=== PATIENT | male | born 1945 | race Caucasian/White ===

== ENCOUNTER 2016-11-13 12:49 | Day surgery (SDC) | payer MEDICARE, BC ==
[2016-11-13 13:31] VITALS: BP 140/75; PULSE 70; RESP 18; TEMP 98.2
--- NOTE | 2016-11-13 15:49 | US ---
ULTRASOUND GUIDED FNA THYROID BIOPSY: CLINICAL HISTORY: 2.3 cm right thyroid nodule FINDINGS: The procedure was explained to the patient. The risks, complications, benefits and alternatives were discussed and any questions were answered. Informed consent was obtained. Patient was placed supin e on the ultrasound table and prepped and draped in the usual sterile fashion. Utilizing a 25 gauge needle, five passes were made into the requested right thyroid nodule. Patient was stable throughout the procedure. Pathology is pending. All elements of maximal barrier technique were utilized. IMPRESSION: 1. Successful ultrasound guided FNA thyroid biopsy.
== END 2016-11-13 14:25 | disposition home or self-care (01) ==
LOC: RADPROMAIN 12:49
PROVIDERS: ATTEND Radiology Radiation Oncology
DX: E07.9 Disorder of thyroid, unspecified (principal)
CPT/HCPCS: 10022; 76942; 88173; 88305

== ENCOUNTER 2016-12-24 09:27 | Emergency (ER) | payer MEDICARE, BC ==
[2016-12-24 09:58] VITALS: RESP 16
[2016-12-24] MEDS ORDERED: MECLIZINE 25 MG TAB PO STA (10:01)
[2016-12-24] MEDS ORDERED: DIAZEPAM 5 MG/ML 2 ML SYRINGE IVP STA (10:05)
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
[2016-12-24] MEDS ORDERED: DIAZEPAM 5 MG TAB PO STA (10:12)
[2016-12-24 10:25] LABS: Basophils % (A) 0 %; CH 30.6; CHCM 33.8; Eosinophils % (A) 0 %; HCT 35.3 % (39.0-53.0); HDW 2.61; Luc # (Auto) 0.06; Luc % (Auto) 1; Lymphocytes # (A) 0.3 k/uL (1.0-4.8); Lymphocytes % (A) 4 %; MCH 30.9 pg (25.0-35.0); MCHC 33.9 g/dL (31.0-37.0); MCV 91.1 fL (80.0-100.0); Mean Platelet Volume 8.1; Monocytes # (A) 0.5 k/uL (0-1.0); Monocytes % (A) 7 %; Neutrophils # (A) 6.6 k/uL (1.3-7.7); Neutrophils % (A) 88 %; RBC 3.88 m/uL (4.30-5.90); RDW 13.8 % (11.5-15.5); WBC 7.5 k/uL (3.8-10.6); WBC (Perox) 8.11
[2016-12-24 10:31] LABS: ALT 24 U/L (21-72); AST 21 U/L (17-59); Alkaline Phosphatase 88 U/L (38-126); Anion Gap 9 mmol/L; Blood Urea Nitrogen 39 mg/dL (9-20); Calcium 8.4 mg/dL (8.4-10.2); Carbon Dioxide 22 mmol/L (22-30); Chloride 106 mmol/L (98-107); Glucose 148 mg/dL (74-99); Magnesium 2.1 mg/dL (1.6-2.3); Non-African American GFR(MDRD) >60 (>60 ml/min/1.73 sqM); Sodium 137 mmol/L (137-145); Total Bilirubin 0.6 mg/dL (0.2-1.3); Total Protein 6.4 g/dL (6.3-8.2)
[2016-12-24 10:47] LABS: Creatine Kinase 51 U/L (55-170)
[2016-12-24 10:57] LABS: INR 1.1 (<1.2); Prothrombin Time 10.7 sec (9.0-12.0)
[2016-12-24 11:00] LABS: Creatine Kinase MB 0.7 ng/mL (0.0-2.4); Troponin I <0.012 ng/mL (0.000-0.034)
--- NOTE | 2016-12-24 11:09 | XR ---
EXAMINATION TYPE: XR chest 2V DATE OF EXAM: 12/24/2016 COMPARISON: NONE HISTORY: Shortness of breath TECHNIQUE: Frontal and lateral views of the chest are obtained. FINDINGS: Scattered senescent parenchymal changes noted. Hyperinflation compatible with COPD. No evidence for infiltrate. No evidence for atelectasis. Heart size is stable. Mediastinal structures are stable and grossly unremarkable. No evidence for hilar prominence. Degenerative changes dorsal spine. IMPRESSION: 1. No evidence for acute pulmonary disease.
[2016-12-24 11:13] LABS: Partial Thromboplastin Time 17.9 sec (22.0-30.0)
--- NOTE | 2016-12-24 11:14 | CT ---
EXAMINATION TYPE: CT brain wo con DATE OF EXAM: 12/24/2016 COMPARISON: NONE INDICATION: Patient complains of dizziness. DLP: 763.5 mGycm, Automated exposure control for dose reduction was used. CONTRAST: None CT of the brain is performed utilizing 3 mm thick sections through the posterior fossa and 3 mm thick sections through the remaining calvarium. Study is performed within 24 hours of arrival to the hosp ital. No abnormal hyperdensity is present to suggest an acute intracranial hemorrhage. No mass lesion is evident. No acute infarcts are evident. There is some mild periventricular white matter hypodensity, likely on the basis of chronic white matter ischemic changes. Ventricles and sulci are slightly prominent for the patient age. Paranasal sinuses and mastoid air cells within the [id number] are clear. IMPRESSIONS: 1. Periventricular chronic appearing white matter ischemic changes and age-related atrophy.
[2016-12-24 12:14] VITALS: BP 157/83; PULSE 59; TEMP 97
== END 2016-12-24 12:13 | disposition home or self-care (01) ==
LOC: EC 09:27
DX: R42 Dizziness and giddiness (principal); R00.1 Bradycardia, unspecified; M19.90 Unspecified osteoarthritis, unspecified site; N42.9 Disorder of prostate, unspecified; Z87.891 Personal history of nicotine dependence; Z79.1 Long term (current) use of non-steroidal anti-inflammatories (NSAID); Z79.899 Other long term (current) drug therapy; Z85.46 Personal history of malignant neoplasm of prostate
CPT/HCPCS: 36415; 70450; 71020; 80053; 82550; 82553; 83735; 84484; 85025; 85610; 85730; 93005; 99284

== ENCOUNTER 2021-10-21 16:08 | Inpatient (IN) | payer MEDICARE, BC ==
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
[2021-10-21] MEDS ORDERED: DILTIAZEM DRIP BOLUS FROM BAG 1 MG SOLN IV ONE (16:56)
[2021-10-21] MEDS ORDERED: DILTIAZEM 125 MG in SODIUM CHLORIDE 0.9% 100 ML IV SCH (17:00)
[2021-10-21 17:43] LABS: INR 1.1 (<1.2); Prothrombin Time 11.7 sec (9.0-12.0)
[2021-10-21] MEDS ORDERED: HEPARIN SODIUM 1,000 UN/ML (10ML VL) IV ONE (17:55)
[2021-10-21] MEDS ORDERED: HEPARIN SODIUM 1,000 UN/ML (10ML VL) IV PRN (17:55)
[2021-10-21] MEDS ORDERED: NALOXONE 0.4 MG/ML 1 ML VIAL IV PRN (17:57)
[2021-10-21] MEDS ORDERED: HEPARIN SOD,PORK IN 0.45% NACL 25,000 UNIT in 0.45% NACL 1 250ML.BAG IV SCH (18:00)
[2021-10-21 18:28] LABS: Partial Thromboplastin Time 24.9 sec (22.0-30.0)
[2021-10-21] MEDS: metroNIDAZOLE 500 MG TAB PO SCH (20:36)
[2021-10-21] MEDS ORDERED: CIPROFLOXACIN HCL 500 MG TAB PO SCH (21:00)
[2021-10-22] MEDS: metroNIDAZOLE 500 MG TAB PO SCH (02:32)
[2021-10-22 06:54] LABS: Basophils % (A) 0 %; Eosinophils # (A) 0.4 k/uL (0-0.7); Eosinophils % (A) 5 %; HCT 46.4 % (39.0-53.0); HGB 14.5 gm/dL (13.0-17.5); Lymphocytes # (A) 1.3 k/uL (1.0-4.8); Lymphocytes % (A) 16 %; MCH 29.1 pg (25.0-35.0); MCHC 31.3 g/dL (31.0-37.0); MCV 92.9 fL (80.0-100.0); Mean Platelet Volume 8.6; Monocytes # (A) 0.5 k/uL (0-1.0); Monocytes % (A) 6 %; Neutrophils # (A) 5.8 k/uL (1.3-7.7); Neutrophils % (A) 72 %; Platelet Count 260 k/uL (150-450); RBC 4.99 m/uL (4.30-5.90); WBC 8.1 k/uL (3.8-10.6)
[2021-10-22 07:04] LABS: INR 1.2 (<1.2); Prothrombin Time 12.3 sec (9.0-12.0)
[2021-10-22] MEDS: SERTRALINE 50 MG TAB PO SCH (08:32)
[2021-10-22] MEDS: TAMSULOSIN 0.4 MG CAP.ER.24H PO SCH (08:32)
[2021-10-22] MEDS: APIXABAN 5 MG TAB PO SCH ×2 (08:45→20:24)
[2021-10-22] MEDS: METOPROLOL TARTRATE 50 MG TAB PO SCH ×2 (08:46→20:24)
[2021-10-22 09:24] LABS: African American GFR (CKD) 66 (>60 ml/min/1.73 sqM); Anion Gap 6 mmol/L; Blood Urea Nitrogen 21 mg/dL (9-20); Calcium 8.2 mg/dL (8.4-10.2); Carbon Dioxide 21 mmol/L (22-30); Chloride 110 mmol/L (98-107); Glucose 98 mg/dL (74-99); Non-African American GFR(CKD) 57 (>60 ml/min/1.73 sqM); Potassium 4.1 mmol/L (3.5-5.1); Sodium 137 mmol/L (137-145)
[2021-10-22 10:25] LABS: T4, Free (Free Thyroxine) 1.45 ng/dL (0.78-2.19)
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
--- NOTE | 2021-10-22 11:27 | P.DS ---
Providers Date of admission: 10/21/21 16:54 Attending physician: Amber Jean Consults: 10/21/21 17:57 Consult Physician Routine Consulting Provider: Dago De La Cruz Consult Reason/Comments: New-onset A. fib with RVR, syncope Do you want consulting provider notified?: Yes, Notify in am Primary care physician: Sarita Hernandez MD Hospital Course: Refer to my history of present illness for further details history of present illness for further details Plan - Discharge Summary Discharge Rx Participant: Yes New Discharge Prescriptions: New Apixaban [Eliquis] 5 mg PO BID #60 tab Apixaban [Eliquis] 5 mg PO BID #60 tab Metoprolol Tartrate [Lopressor] 50 mg PO BID #60 tab Continue Tamsulosin HCl [Flomax] 0.4 mg PO DAILY Sertraline [Zoloft] 50 mg PO DAILY Discontinued Naproxen 500 mg PO BID PRN PRN Reason: Pain metroNIDAZOLE 500 mg PO Q8H Ciprofloxacin HCl 500 mg PO BID Discharge Medication List Tamsulosin HCl [Flomax] 0.4 mg PO DAILY 11/13/16 [History] Sertraline [Zoloft] 50 mg PO DAILY 12/24/16 [History] Apixaban [Eliquis] 5 mg PO BID #60 tab 10/22/21 [Rx] Apixaban [Eliquis] 5 mg PO BID #60 tab 10/22/21 [Rx] Metoprolol Tartrate [Lopressor] 50 mg PO BID #60 tab 10/22/21 [Rx] Follow up Appointment(s)/Referral(s): Sarita Hernandez MD [Primary Care Provider] - 3 Days Discharge Disposition: HOME SELF-CARE
--- NOTE | 2021-10-22 11:34 | CA ---
Transthoracic Echo Report Name: Alexandro More Age: 76 Gender: M : 1945 Exam Date: 10/22/2021 08:12 Exam Location: [facility] Ht (in): 70 Wt (lb): 167 Ordering Physician: Carson Brito Attending/Referring Phys: Repossessor Lois De Los Santos RDCS Procedure CPT: Indications: A. fib with RVR, syncope Cardiac Hx: Technical Quality: Good Contrast 1: Total Dose (mL): Contrast 2: Total Dose (mL): MEASUREMENTS (Male / Female) Normal Values 2D ECHO LV Diastolic Diameter PLAX 5.1 cm 4.2 - 5.9 / 3.9 - 5.3 cm LV Systolic Diameter PLAX 3.5 cm IVS Diastolic Thickness 1.3 cm 0.6 - 1.0 / 0.6 - 0.9 cm LVPW Diastolic Thickness 1.3 cm 0.6 - 1.0 / 0.6 - 0.9 cm LV Relative Wall Thickness 0.5 RV Internal Dim ED PLAX 3.3 cm LA Systolic Diameter LX 3.9 cm 3.0 - 4.0 / 2.7 - 3.8 cm LA Volume 69.8 cm??? 18 - 58 / 22 - 52 cm??? M-MODE Aortic Root Diameter MM 2.8 cm MV E Point Septal Separation 1.4 cm AV Cusp Separation MM 1.7 cm DOPPLER AV Peak Velocity 115.1 cm/s AV Peak Gradient 5.3 mmHg MV Area PHT 4.4 cm??? MV Deceleration Time 185.7 ms TR Peak Velocity 304.9 cm/s TR Peak Gradient 37.2 mmHg Right Ventricular Systolic Press 40.4 mmHg FINDINGS Left Ventricle Left ventricular ejection fraction is estimated at 40-45 %. Left ventricular cavity size normal. Mild concentric left ventricular hypertrophy. Right Ventricle Mild right ventricular dilatation. Mild pulmonary hypertension. Right Atrium Normal right atrial size. Left Atrium Moderately increased left atrial volume. Mildly increased left atrial area. No evidence for an atrial septal defect. Mitral Valve Mitral valve thickened. Mild mitral regurgitation. No evidence for mitral valve prolapse. Aortic Valve Focal thickening of the aortic valve cusps. No aortic valve stenosis or regurgitation. Tricuspid Valve Mild tricuspid regurgitation. Pulmonic Valve Pulmonic valve not well visualized. Pericardium Normal pericardium. No pericardial effusion. Aorta Normal size aortic root and proximal ascending aorta. CONCLUSIONS Left ventricular ejection fraction 40-45% with global hypokinesis Mild LVH RVSP 40 Mild mitral regurgitation Mild tricuspid regurgitation No pericardial effusion Previewed by: Dr. Krishna Still DO (Electronically Signed) Final Date: 22 October 2021 11:33
--- NOTE | 2021-10-22 12:32 | CT ---
EXAMINATION TYPE: CT chest angio for PE CT DLP: 315.4 mGycm, Automated exposure control for dose reduction was used. DATE OF EXAM: 10/22/2021 12:22 PM COMPARISON: Chest radiograph from 10/21/2021. CLINICAL INDICATION:Male, 76 years old with history of r/o PE; Elevated d-dimer. TECHNIQUE/CONTRAST: CTA scan of the thorax is performed with IV Contrast, patient injected with 77ml mL of Isovue 370, pu lmonary embolism protocol. MIP images are created and reviewed. FINDINGS: Pulmonary Artery: There is no evidence for a filling defect within the pulmonary vasculature to sugge st acute pulmonary embolism. The pulmonary artery is of normal size. Lungs/Pleura: No evidence of focal consolidation, pleural effusion or pneumothorax. Mild COPD changes are seen throughout the lungs. Airway: Large airways are patent. Heart: Heart is within normal limits for size. Mild atherosclerosis of the coronary arteries. Vasculature: No evidence of aortic aneurysm. Mediastinum: No gross evidence of adenopathy. Musculoskeletal: No acute osseous abnormalities. Mild degeneration changes of the spine with increase d kyphosis of the thoracic spine. Soft Tissues: Unremarkable. Lower neck: No significant findings. Upper Abdomen: No significant findings. IMPRESSION: 1. No evidence of pulmonary embolism. 2. Mild COPD changes.
[2021-10-22] MEDS: SODIUM CHLORIDE 0.9% 1,000 ML IV SCH (13:19)
[2021-10-22 16:04] LABS: Appearance,Urine Clear (Clear); Bilirubin,Urine Negative (Negative); Blood,Urine Negative (Negative); Color,Urine Yellow; Glucose,Urine (UA) Negative (Negative); Ketones,Urine Negative (Negative); Leukocyte Esterase,Urine Negative (Negative); Nitrite,Urine Negative (Negative); Protein,Urine Trace (Negative); Urobilinogen,Urine <2.0 mg/dL (<2.0)
[2021-10-22 16:28] LABS: Specific Gravity,Urine >1.050 (1.001-1.035)
[2021-10-23] MEDS: SODIUM CHLORIDE 0.9% 1,000 ML IV SCH (01:30)
[2021-10-23] MEDS ORDERED: LOPERAMIDE 2 MG CAP PO PRN (09:00)
[2021-10-23] MEDS ORDERED: FUROSEMIDE 40 MG TAB PO SCH (09:00)
[2021-10-23] MEDS: SERTRALINE 50 MG TAB PO SCH (09:06)
[2021-10-23] MEDS: TAMSULOSIN 0.4 MG CAP.ER.24H PO SCH (09:06)
[2021-10-23] MEDS: METOPROLOL TARTRATE 50 MG TAB PO SCH (09:06)
[2021-10-23] MEDS: APIXABAN 5 MG TAB PO SCH (09:06)
--- NOTE | 2021-10-23 12:36 | P.PN ---
Subjective Patient is resting comfortably in bed. He denies any chest discomfort or undue shortness of breath He complains of hip pain In examination blood pressure is 124/80 mmHg pulse rate is in the 70s afebrile Breath sounds are reduced bilaterally rhythm is irregular No lower extremity edema No orthopnea no respiratory distress Impression Mild cardio myopathy 40-45% global hypokinesis Paroxysmal atrial fibrillation with RVR associated with near syncope First degree AV block Hypothyroidism Plan Continue anticoagulation with ELIQUIS Continue by mouth Lasix 40 mg by mouth daily Continue metoprolol 50 mrem twice daily Internal medicine to address hypothyroidism From a cardiac standpoint he may go home and follow-up with his primary care physician in [place] and a referral to outpatient cardiology for further evaluation Objective - Vital Signs Vital signs: Vital Signs Temp 98.1 F 10/23/21 07:33 Pulse 67 10/23/21 07:33 Resp 18 10/23/21 07:33 BP 135/92 10/23/21 07:33 Pulse Ox 93 L 10/23/21 07:33 FiO2 Intake & Output 10/22/21 10/23/21 10/23/21 18:59 06:59 18:59 Intake Total 358 1140 118 Output Total 300 400 Balance 58 740 118 Weight 75.75 kg Intake: Intake, IV Titration 900 Amount Sodium Chloride 0.9% 1, 900 000 ml @ 75 mls/hr IV . [id number] [facility] Rx#:[id number] Oral 358 240 118 Output: Urine 300 400 Other: # Bowel Movements 1 - Labs CBC & Chem 7: 10/22/21 06:30 10/22/21 06:30 Labs: Abnormal Lab Results - Last 24 Hours (Table) 10/22/21 10/22/21 Range/Units 06:30 15:06 Chloride 110 H (98-107) mmol/L Carbon Dioxide 21 L (22-30) mmol/L BUN 21 H (9-20) mg/dL Calcium 8.2 L (8.4-10.2) mg/dL TSH 18.900 H (0.465-4.680) mIU/L Ur Specific [place] >1.050 H (1.001-1.035) Urine Protein Trace H (Negative)
[2021-10-23 13:24] VITALS: BP 104/47; PULSE 86; RESP 19; TEMP 98
== END 2021-10-23 14:34 | disposition home or self-care (01) | DRG 309 ==
LOC: EC 16:08 → 3SCARD 16:54
PROVIDERS: ADMIT Hospitalist; ATTEND Hospitalist
DX: I48.0 Paroxysmal atrial fibrillation (principal); E87.2 Acidosis; J98.11 Atelectasis; K57.92 Diverticulitis of intestine, part unspecified, without perforation or abscess without bleeding; C09.9 Malignant neoplasm of tonsil, unspecified; R00.1 Bradycardia, unspecified; I48.3 Typical atrial flutter; E86.0 Dehydration; F41.9 Anxiety disorder, unspecified; R79.1 Abnormal coagulation profile; I42.9 Cardiomyopathy, unspecified; I44.0 Atrioventricular block, first degree; E03.9 Hypothyroidism, unspecified; E87.8 Other disorders of electrolyte and fluid balance, not elsewhere classified; Z79.01 Long term (current) use of anticoagulants; Z79.899 Other long term (current) drug therapy; Z85.46 Personal history of malignant neoplasm of prostate; Z87.891 Personal history of nicotine dependence; Z20.822 Contact with and (suspected) exposure to COVID-19; Z28.21 Immunization not carried out because of patient refusal
CPT/HCPCS: 36415; 71275; 80048; 81003; 84439; 84443; 84484; 85025; 85379; 85610; 85730; 87324; 87635; 93306; 96365; 96366; 96375; 96376; 99285

== ENCOUNTER 2021-10-27 23:43 | Inpatient (IN) | payer MEDICARE, BC ==
[2021-10-28 00:48] LABS: Basophils % (A) 0 %; Eosinophils # (A) 0.1 k/uL (0-0.7); Eosinophils % (A) 1 %; HCT 48.5 % (39.0-53.0); HGB 15.4 gm/dL (13.0-17.5); Lymphocytes # (A) 0.4 k/uL (1.0-4.8); Lymphocytes % (A) 5 %; MCHC 31.8 g/dL (31.0-37.0); Mean Platelet Volume 7.6; Monocytes # (A) 0.8 k/uL (0-1.0); Monocytes % (A) 9 %; Neutrophils # (A) 6.6 k/uL (1.3-7.7); Neutrophils % (A) 83 %; Platelet Count 263 k/uL (150-450); RBC 5.33 m/uL (4.30-5.90); RDW 13.9 % (11.5-15.5)
[2021-10-28 00:58] LABS: Albumin 3.8 g/dL (3.5-5.0); Calcium 8.9 mg/dL (8.4-10.2); Magnesium 1.8 mg/dL (1.6-2.3); Potassium 3.8 mmol/L (3.5-5.1); Total Bilirubin 0.7 mg/dL (0.2-1.3); Total Protein 6.9 g/dL (6.3-8.2)
[2021-10-28] MEDS ORDERED: HEPARIN SODIUM 1,000 UN/ML (10ML VL) IV PRN (01:17)
[2021-10-28] MEDS ORDERED: HEPARIN SODIUM 1,000 UN/ML (10ML VL) IV ONE (01:17)
[2021-10-28 01:19] LABS: Partial Thromboplastin Time 23.8 sec (22.0-30.0); Prothrombin Time 11.3 sec (9.0-12.0)
[2021-10-28] MEDS: HEPARIN SOD,PORK IN 0.45% NACL 25,000 UNIT in 0.45% NACL 1 250ML.BAG IV SCH (01:47)
--- NOTE | 2021-10-28 01:57 | XR ---
EXAMINATION TYPE: XR chest 2V DATE OF EXAM: 10/28/2021 COMPARISON: 12/24/2016 HISTORY: Dizziness TECHNIQUE: 2 views FINDINGS: There is no heart failure nor confluent pneumonic infiltrate. Costophrenic angles are clear . There is a mild thoracic kyphosis. No pleural effusion. There are chest leads. No hilar masses. IMPRESSION: No active cardiopulmonary disease. No change.
[2021-10-28] MEDS ORDERED: NALOXONE 0.4 MG/ML 1 ML VIAL IV PRN (06:04)
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
[2021-10-28] MEDS: SODIUM CHLORIDE 0.9% 1,000 ML IV SCH (06:19)
[2021-10-28] MEDS ORDERED: ALBUTEROL NEBULIZED 2.5 MG/3 ML INHALATION SCH (08:00)
[2021-10-28] MEDS: METOPROLOL TARTRATE 50 MG TAB PO SCH ×2 (08:35→20:56)
[2021-10-28] MEDS: TAMSULOSIN 0.4 MG CAP.ER.24H PO SCH (08:35)
[2021-10-28] MEDS: SERTRALINE 50 MG TAB PO SCH (08:35)
[2021-10-28] MEDS: ALBUTEROL HFA INHALER INHALATION SCH ×4 (08:43→20:24)
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
[2021-10-28] MEDS ORDERED: LORazepam 0.5 MG TAB PO PRN (12:53)
[2021-10-28] MEDS: ACETAMINOPHEN TAB 325 MG TAB PO PRN (13:12)
[2021-10-28] MEDS: methylPREDNISolone SOD SUCCI 125 MG/2 ML VIAL IV SCH ×3 (13:12→23:25)
--- NOTE | 2021-10-28 16:16 | CONS ---
CONSULTATION CHIEF COMPLAINT: Elevated troponin HISTORY OF PRESENT ILLNESS: Mr. More is a 76-year-old gentleman with history of prostatic hypertrophy, hypertension, and recently diagnosed atrial fibrillation, who presented to hospital with shortness of breath. He was in [id number] respiratory distress and his coronavirus test had come back positive and as part of his workup, he had a troponin that came back elevated at 0.3 for which Cardiology had been consulted. His BNP is also elevated as is the D-dimer. These are all probably related to the coronavirus infection. The patient was in the hospital on 10/22/2021 with symptoms of having had an episode of syncope and Cardiology was consulted at that time for atrial fibrillation. He was sent home on [employer] and could not afford to purchase it. He was supposed to go see a wire wheeler somewhere in the [place] [facility]. The earliest appointment he could get was about a month away. He came back in with these new symptoms and turned out to be COVID positive. His EKG shows atrial fibrillation with nonspecific ST-T wave changes in PVCs. I believe his primary problem is really the coronavirus infection. He has crackles and his chest x-ray does not reveal any pulmonary congestion and he does not have any leg edema. Recent echocardiogram showed mild LV systolic dysfunction without significant valvular heart disease. PAST MEDICAL HISTORY: Significant for benign prostatic hypertrophy, COPD, recently diagnosed atrial fibrillation. MEDICATIONS: Medications at home included: Lasix, inhaler, Lopressor, Zoloft, and Flomax, Eliquis that he did not start. ALLERGIES: There are no known drug allergies. FAMILY HISTORY: Negative for premature coronary artery disease. SOCIAL HISTORY: Negative for current smoking, EtOH abuse or drug abuse. REVIEW OF SYSTEMS: HEENT is unremarkable. Cardiac as described above. Respiratory as described above. GI negative. Genitourinary negative. Allergy/Immunology: None. Skin negative. Musculoskeletal: Significant for arthritis. Psychosocial: Negative. Derm negative. Constitutional as described above. Oncological negative. DEBT AND BUDGET COUNSELOR negative. EXAM: Heart rate is around 100 beats per minute. Blood pressure is 150/92, respirations 27, O2 saturation 95% on 2 L. Rest of the exam was not performed because of the coronavirus infection. LABS: Show a hemoglobin of 15.4, platelet count is 260. Potassium is 3.8. D-dimer is elevated. Creatinine is 1.5, which jumped from 1.2. BNP is up. Troponins are up. Coronavirus is positive. ASSESSMENT: 1. Persistent atrial fibrillation with poorly controlled ventricular rate. 2. Coronavirus infection. 3. Elevated troponin along with D-dimer and BNP are probably related to the viral infection. PLAN: We will control the heart rate with Lopressor. Continue with the heparin and he will need a different anticoagulant on discharge as he could not afford the Eliquis. MMODL / IJN: [id number] /
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
[2021-10-29] MEDS: HEPARIN SOD,PORK IN 0.45% NACL 25,000 UNIT in 0.45% NACL 1 250ML.BAG IV SCH (01:24)
[2021-10-29] MEDS: SODIUM CHLORIDE 0.9% 1,000 ML IV SCH ×2 (01:25→14:08)
[2021-10-29] MEDS: ACETAMINOPHEN TAB 325 MG TAB PO PRN (02:12)
[2021-10-29] MEDS: methylPREDNISolone SOD SUCCI 125 MG/2 ML VIAL IV SCH ×3 (05:05→18:09)
[2021-10-29 07:41] LABS: Basophils % (A) 0 %; Eosinophils % (A) 0 %; HCT 51.8 % (39.0-53.0); Lymphocytes # (A) 0.7 k/uL (1.0-4.8); Lymphocytes % (A) 9 %; MCH 28.9 pg (25.0-35.0); MCHC 30.9 g/dL (31.0-37.0); MCV 93.7 fL (80.0-100.0); Monocytes # (A) 0.3 k/uL (0-1.0); Monocytes % (A) 3 %; Neutrophils % (A) 87 %; Platelet Count 264 k/uL (150-450); RBC 5.53 m/uL (4.30-5.90); RDW 13.9 % (11.5-15.5); WBC 8.1 k/uL (3.8-10.6)
[2021-10-29 08:24] LABS: INR 1.1 (<1.2); Partial Thromboplastin Time 84.5 sec (22.0-30.0); Prothrombin Time 12.1 sec (9.0-12.0)
[2021-10-29] MEDS: ALBUTEROL HFA INHALER INHALATION SCH ×4 (09:00→21:50)
[2021-10-29] MEDS: TAMSULOSIN 0.4 MG CAP.ER.24H PO SCH (10:56)
[2021-10-29] MEDS: METOPROLOL TARTRATE 50 MG TAB PO SCH ×2 (10:56→21:35)
[2021-10-29] MEDS: SERTRALINE 50 MG TAB PO SCH (10:57)
--- NOTE | 2021-10-29 11:17 | P.PN ---
Subjective This is a 76-year-old male with a past medical history significant for paroxysmal atrial fibrillation recently diagnosed, COPD, diverticulitis, marij uana use and former nicotine dependence. Patient does not follow with a public aid eligibility assistant. We have been asked to see the patient in consultation for elevated troponin. Patient presents to the ER with increased dyspnea, cough chest tightness and wheezing. Patient found to be Covid-19 positive. The patient was recently admitted 1 week ago for syncope, this was found to be secondary to new onset atrial fibrillation and dehydration Echo revealed ejection fraction of 40-45% with global hypokinesis. The patient was started on metoprolol 50 mg BID and Eliquis 5 mg BID. Patient seen and examined at bedside, distress. He continues to have chills, shortness of breath and cough. He states his breathing has improved since admission. He denies any chest pain or palpitations. He continues to be in at rial fibrillation with controlled ventricular rates. Meds: IV heparin, metoprolol tartrate 50 mg twice a day GENERAL: In no acute distress. NECK: Supple without JVD LUNGS: Breath sounds rhonchi bilaterally to auscultation bilaterally. Respiration equal and unlabored. No wheezes, rales or rhonchi. HEART: Irregular rate and rhythm. No rubs or gallops. S1 and S2 heard. EXTREMITIES: Normal range of motion, no edema. No clubbing or cyanosis. Peripheral pulses intact. 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 EF 40-45% COPD Diverticulitis Former nicotine dependence History of tonsilar cancer PLAN Continue metoprolol tartrate 50mg BID Checked Xarelto and Eliquis coverage for patient, due to deductible medication will be around $400 copay We will continue IV heparin for now, likely patient will need Coumadin secondary to anticoagulation cost Patient states he has an appointment in November with a public aid eligibility assistant closer to home in [facility] or will follow in [place] based on his preference Further recommendations based on clinical course Nurse Practitioner note has been reviewed, I agree with a documented findings and plan of care. Patient was seen and examined. Objective - Vital Signs Vital signs: Vital Signs Temp 97.4 F L 10/28/21 15:30 Pulse 76 10/28/21 15:30 Resp 19 10/28/21 15:30 BP 147/89 10/28/21 15:30 Pulse Ox 94 L 10/28/21 15:30 FiO2 Intake & Output 10/28/21 10/28/21 10/29/21 06:59 18:59 06:59 Intake Total 1099.349 Output Total 125 Balance 974.349 Weight 77.111 kg 77.111 kg Intake: Intake, IV Titration 49.349 Amount Heparin Sod,Pork in 0.45% 49.349 NaCl 25,000 unit In 0.45 % NaCl 1 250ml.bag @ 12 UNITS/KG/HR 9.253 mls/hr IV .Q24H [facility] Rx#: [id number] Oral 1050 Output: Urine 125 Other: Voiding Method Bedside Commode Urinal - Labs CBC & Chem 7: 10/29/21 07:12 10/28/21 00:19 Labs: Abnormal Lab Results - Last 24 Hours (Table) 10/28/21 10/28/21 10/28/21 Range/Units 00:19 00:19 00:19 Lymphocytes # 0.4 L (1.0-4.8) k/uL APTT (22.0-30.0) sec D-Dimer (<0.60) mg/L FEU Sodium 134 L (137-145) mmol/L BUN 28 H (9-20) mg/dL Creatinine 1.52 H (0.66-1.25) mg/dL Glucose 112 H (74-99) mg/dL Troponin I 0.326 H* (0.000-0.034) ng/mL C-Reactive Protein (<1.0) mg/dL Procalcitonin (0.02-0.09) ng/mL Coronavirus (PCR) (Not Detectd) 10/28/21 10/28/21 10/28/21 Range/Units 00:19 00:19 02:43 Lymphocytes # (1.0-4.8) k/uL APTT (22.0-30.0) sec D-Dimer 1.26 H (<0.60) mg/L FEU Sodium (137-145) mmol/L BUN (9-20) mg/dL Creatinine (0.66-1.25) mg/dL Glucose (74-99) mg/dL Troponin I (0.000-0.034) ng/mL C-Reactive Protein 2.0 H (<1.0) mg/dL Procalcitonin 0.10 H (0.02-0.09) ng/mL Coronavirus (PCR) (Not Detectd) 10/28/21 10/28/21 Range/Units 06:38 06:56 Lymphocytes # (1.0-4.8) k/uL APTT 63.2 H (22.0-30.0) sec D-Dimer (<0.60) mg/L FEU Sodium (137-145) mmol/L BUN (9-20) mg/dL Creatinine (0.66-1.25) mg/dL Glucose (74-99) mg/dL Troponin I (0.000-0.034) ng/mL C-Reactive Protein (<1.0) mg/dL Procalcitonin (0.02-0.09) ng/mL Coronavirus (PCR) Detected A (Not Detectd)
--- NOTE | 2021-10-29 13:13 | P.PN ---
Subjective Progress Note Date: 10/29/21 Principal diagnosis: Acute hypoxic respiratory failure secondary to acute COPD exacerbation. This is a 76-year-old male patient, an ex-tobacco smoker, and active marijuana smoker, with known history of COPD, was coming in with increased dyspnea, cough chest tightness and wheezing. During this current admission, the patient also tested positive for: COVID 19. He states that he has already been vaccinated for: COVID 19 and he has taken to the vaccinations including one booster. The patient was in the hospital approximately a week ago after he had a bout of syncope. This was attributed to new onset atrial fibrillation and dehydration. He was given treatment. Echo of the heart showed an ejection fraction of 40-45% without any significant valvular abnormalities. The patient was started on metoprolol 50 mg by mouth twice a day and Eliquis 5 mg by mouth twice a day and the patient was discharged. The patient comes to the above-mentioned complaint of increased dyspnea cough and congestion. No hemoptysis. No pleurisy. No DVT or pulmonary embolism. The patient had limited troponin leak and the patient was started on IV heparin. EKG showing atrial fibrillation without any acute ischemic changes. Otherwise, the white cell count of 8 with a hemoglobin of 13. 4 and a platelet count of 263. PTT is therapeutic. The patient also has a proBNP level of 3960. Sodium is at 134 with a potassium level of 3.8 and chloride of 100 with a bicarb of 25. Creatinine is 28 with a creatinine of 1.5. The chest x-ray was clear. The patient's currently on 2 L O2 nasal cannula. No fever. No chills. No altered mentation. No change in taste or smell. No other complaints. CAT scan of the chest was done during his last admission showed some mild COPD. No other acute abnormalities of been noted. Reevaluated today on 10/29/21, patient is doing better today, breathing easier, nonetheless he continues to cough and wheeze. Patient is on 4 L nasal cannula, O2 sats is 97%. His chest x-ray showed no evidence of pneumonia, however patient did have positive Covid 19 PCR. But there is no evidence of pneumonia. WBC count today is 8.1 hemoglobin is 16. Patient is on heparin with PTT of 84.5. D-dimer is 1.26, basic metabolic profile is normal BUN is 28 creatinine 1.52. LDH 445 C-reactive protein is 2 BNP is elevated at 3960 Objective - Vital Signs Vital signs: Vital Signs Temp 98.1 F 10/29/21 12:45 Pulse 79 10/29/21 12:45 Resp 19 10/29/21 12:45 BP 156/87 10/29/21 12:45 Pulse Ox 97 10/29/21 12:45 FiO2 Intake & Output 10/28/21 10/29/21 10/29/21 18:59 06:59 18:59 Intake Total 1099.349 169.176 327.132 Output Total 125 0 Balance 974.349 169.176 327.132 Weight 77.111 kg Intake: Intake, IV Titration 49.349 169.176 87.132 Amount Heparin Sod,Pork in 0.45% 49.349 169.176 87.132 NaCl 25,000 unit In 0.45 % NaCl 1 250ml.bag @ 12 UNITS/KG/HR 9.253 mls/hr IV .Q24H [facility] Rx#: [id number] Oral 1050 240 Output: Urine 125 0 Other: Voiding Method Bedside Commode Bedside Commode Bedside Commode Urinal Urinal Urinal # Voids 1 # Bowel Movements 1 - Exam Physical Exam: Revealed a 76-year-old white male in no distress. Head: Atraumatic, normocephalic. HEENT:[Neck is supple.] [No neck masses.] [No thyromegaly.] [No JVD.] Chest: Symmetrical chest expansion, rhonchi and wheezes noted bilaterally. Cardiac Exam: [Normal S1 and S2, no S3 gallop, no murmur.] Abdomen: [Soft, nontender, no megaly, no rebound, no guarding, normal bowel sounds.] Extremities: [No clubbing, no edema, no cyanosis.] Neurological Exam: [No focal neurologic deficit.] Alert oriented 3. Psychiatric: Normal mood, affect and normal mental status examination. Skin: No rashes. - Labs CBC & Chem 7: 10/29/21 07:12 10/28/21 00:19 Labs: Abnormal Lab Results - Last 24 Hours (Table) 10/28/21 10/29/21 10/29/21 Range/Units 00:19 07:12 07:12 MCHC 30.9 L (31.0-37.0) g/dL Lymphocytes # 0.7 L (1.0-4.8) k/uL PT 12.1 H (9.0-12.0) sec APTT 84.5 H (22.0-30.0) sec Procalcitonin 0.10 H (0.02-0.09) ng/mL Assessment and Plan Assessment: Impression: Acute hypoxic respiratory failure secondary to acute exacerbation of COPD, no evidence of infiltrates on chest x-ray. Acute COVID-19 infection, patient is vaccinated 3 Chronic atrial fibrillation Troponin leak. 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 Recommendation: Continue bronchodilators and IV Solu-Medrol. Continue Symbicort. Continue COVID-19 cocktail. Cautious hydration. Monitor COVID-19 inflammatory markers. Check pro-calcitonin level. Consider switching heparin to eliquis. Patient to be seen by cardiology regarding his atrial fibrillation. And his anticoagulations therapy. Time with Patient: Less than 30
[2021-10-29] MEDS: SYMBICORT 160-4.5 MCG INHALER INHALATION SCH (21:50)
[2021-10-30] MEDS: methylPREDNISolone SOD SUCCI 125 MG/2 ML VIAL IV SCH ×4 (00:12→16:50)
[2021-10-30] MEDS: SODIUM CHLORIDE 0.9% 1,000 ML IV SCH (02:30)
[2021-10-30] MEDS: HEPARIN SOD,PORK IN 0.45% NACL 25,000 UNIT in 0.45% NACL 1 250ML.BAG IV SCH (06:12)
--- NOTE | 2021-10-30 06:19 | P.PN ---
Subjective Progress Note Date: 10/29/21 76-year-old male patient, history of COPD, was coming in with increased dyspnea, cough chest tightness and wheezing. During this current admission, the patient also tested positive for: COVID 19. He states that he has already been vaccinated for: COVID 19 and he has taken to the vaccinations including one booster. The patient was in the hospital approximately a week ago after he had a bout of syncope. This was attributed to new onset atrial fibrillation and dehydration. He was given treatment. Echo of the heart showed an ejection fraction of 40-45% without any significant valvular abnormalities. The patient was started on metoprolol 50 mg by mouth twice a day and Eliquis 5 mg by mouth twice a day and the patient was discharged. The patient comes to the above- mentioned complaint of increased dyspnea cough and congestion. No hemoptysis. No pleurisy. No DVT or pulmonary embolism. The patient had limited troponin leak and the patient was started on IV heparin. EKG showing atrial fibrillation without any acute ischemic changes. Otherwise, the white cell count of 8 with a hemoglobin of 13.4 and a platelet count of 263. PTT is therapeutic. The patient also has a proBNP level of 3960. Sodium is at 134 with a potassium level of 3.8 and chloride of 100 with a bicarb of 25. Creatinine is 28 with a creatinine of 1.5. The chest x-ray was clear. 10/29/2021 Patient is seen and evaluated and follow-up continues on 4 L via nasal cannula. Pulmonary following along with cardiology and patient is maintained on IV heparin along with IV steroids and vitamin supplements. Patient is vaccinated x3 for covid. Patient also with chf and copd history. Prtient was not a candidate f or Remdesivir. ACS ruled out and will need to discuss with cardiology about anticoagulation. Patient is afebrile and denies chest pain or worsening shortness of breath. Patient denies any nausea or vomiting and tolerating diet. Review of systems: Constitutional: reports of fatigue, no fever, or chills Cardiovascular: No reports of chest pain or palpitations Respiratory: No reports of worsening shortness of breath GI: No reports of nausea, vomiting, or diarrhea : No reports of dysuria or retention Neurovascular: No reports of weakness or numbness All medications have been reviewed Active Medications Acetaminophen (Acetaminophen Tab 325 Mg Tab) 650 mg PO Q6HR PRN PRN Reason: Mild Pain or Fever > 100.5 Last Admin: 10/29/21 02:12 Dose: 650 mg Albuterol Sulfate (Albuterol Hfa Inhaler) 2 puff INHALATION RT-QID [facility] Last Admin: 10/29/21 12:14 Dose: 2 puff Budesonide/Formoterol Fumarate (Symbicort 160-4.5 Mcg Inhaler) 2 puff INHALATION RT-BID [facility] Heparin Sodium (Porcine) (Heparin Sodium 1,000 Un/Ml (10ml Vl)) 0 unit IV PER PROTOCOL PRN; Protocol PRN Reason: Low PTT Heparin Sodium/Sodium Chloride (25,000 unit/ Sodium Chloride) 250 mls @ 9.253 m ls/hr IV .Q24H [facility]; Protocol Last Titration: 10/29/21 10:49 Dose: 10 units/kg/hr, 7.711 mls/hr Sodium Chloride (Saline 0.9%) 1,000 mls @ 75 mls/hr IV .[id number] [facility] Last Admin: 10/29/21 14:08 Dose: 75 mls/hr Lorazepam (Lorazepam 0.5 Mg Tab) 0.5 mg PO TID PRN PRN Reason: Agitation or Acute Anxiety Last Admin: 10/28/21 13:13 Dose: 0.5 mg Methylprednisolone Sodium Succinate (Methylprednisolone Sod Succi 125 Mg/2 Ml Vial) 60 mg IV Q6HR [facility] Last Admin: 10/29/21 12:48 Dose: 60 mg Metoprolol Tartrate (Metoprolol Tartrate 50 Mg Tab) 50 mg PO BID [facility] Last Admin: 10/29/21 10:56 Dose: 50 mg Naloxone HCl (Naloxone 0.4 Mg/Ml 1 Ml Vial) 0.2 mg IV Q2M PRN PRN Reason: Opioid Reversal Sertraline HCl (Sertraline 50 Mg Tab) 50 mg PO DAILY [facility] Last Admin: 10/29/21 10:57 Dose: 50 mg Tamsulosin HCl (Tamsulosin 0.4 Mg Cap.Er.24h) 0.4 mg PO DAILY [facility] Last Admin: 10/29/21 10:56 Dose: 0.4 mg Physical exam: Gen: This is a 76 year old male who is awake, alert and oriented x3. Thin built HEENT: Head is atraumatic, normocephalic. Pupils equal, round. Sclerae is anicteric. NECK: Supple. No JVD. No lymphadenopathy. No thyromegaly. LUNGS: diminished breath sounds with some scattered rhonchi and expiratory wheezing noted No intercostal retractions. HEART: S1, S2 muffled ABDOMEN: Soft. Bowel sounds are present. No masses. No tenderness. EXTREMITIES: No pedal edema. No calf tenderness. NEUROLOGICAL: Patient is awake, alert and oriented x3. Cranial nerves 2 through 12 are grossly intact. Assessment: -Acute hypoxic respiratory failure; likely related to COPD exacerbation -COVID-19 infection -Acute exacerbation COPD -Chronic atrial fibrillation; remains rate controlled and is anticoagulated with IV heparin -Elevated troponin; likely troponin leak due to acute respiratory failure -CAD/chronic systolic CHF; patient has an ejection fraction of 40-45% -Acute renal injury -DVT prophylaxis; SCDs/systemic anticoagulation -full code Plan: Recommend to continue current medications and supplemental oxygen therapy. Patient is maintained on 4L via nc. Patient also receiving IV steroids, albuterol inhaler, IV heparin, and vitamin supplements and will continue. Recommend holding diuretics for now and recommend repeat labs. Encouraged increased activity as tolerated Recommend repeat chest xray in the am Due to multiple complex medical issues, prognosis is guarded. The impression and plan of care has been dictated by Charline Moser, Nurse Practitioner as directed. Dr. Ted MD I have performed a history and examination and MDM of this patient, discussed the same with the dictator, and agree with the dictator's assessment and plan as written ,documented as a scribe. Based on total visit time, I have performed more than 50% of the visit. Objective - Vital Signs Vital signs: Vital Signs Temp 98.1 F 10/29/21 12:45 Pulse 79 10/29/21 12:45 Resp 19 10/29/21 12:45 BP 156/87 10/29/21 12:45 Pulse Ox 97 10/29/21 12:45 FiO2 Intake & Output 10/28/21 10/29/21 10/29/21 18:59 06:59 18:59 Intake Total 1099.349 169.176 327.132 Output Total 125 0 Balance 974.349 169.176 327.132 Weight 77.111 kg Intake: Intake, IV Titration 49.349 169.176 87.132 Amount Heparin Sod,Pork in 0.45% 49.349 169.176 87.132 NaCl 25,000 unit In 0.45 % NaCl 1 250ml.bag @ 12 UNITS/KG/HR 9.253 mls/hr IV .Q24H [facility] Rx#: [id number] Oral 1050 240 Output: Urine 125 0 Other: Voiding Method Bedside Commode Bedside Commode Bedside Commode Urinal Urinal Urinal # Voids 1 # Bowel Movements 1 - Labs CBC & Chem 7: 10/29/21 07:12 10/28/21 00:19 Labs: Abnormal Lab Results - Last 24 Hours (Table) 10/28/21 10/29/21 10/29/21 Range/Units 00:19 07:12 07:12 MCHC 30.9 L (31.0-37.0) g/dL Lymphocytes # 0.7 L (1.0-4.8) k/uL PT 12.1 H (9.0-12.0) sec APTT 84.5 H (22.0-30.0) sec Procalcitonin 0.10 H (0.02-0.09) ng/mL
[2021-10-30] MEDS: SYMBICORT 160-4.5 MCG INHALER INHALATION SCH ×2 (07:26→20:48)
[2021-10-30] MEDS: ALBUTEROL HFA INHALER INHALATION SCH ×4 (07:26→20:48)
[2021-10-30 07:57] LABS: Calcium 7.9 mg/dL (8.4-10.2)
[2021-10-30 08:06] LABS: Potassium 4.8 mmol/L (3.5-5.1)
[2021-10-30] MEDS: METOPROLOL TARTRATE 50 MG TAB PO SCH ×2 (09:33→20:05)
[2021-10-30] MEDS: SERTRALINE 50 MG TAB PO SCH (09:33)
[2021-10-30] MEDS: TAMSULOSIN 0.4 MG CAP.ER.24H PO SCH (09:33)
--- NOTE | 2021-10-30 09:55 | CA ---
Transthoracic Echo Report Name: Alexandro More Age: 76 Gender: M : 1945 Exam Date: 10/30/2021 08:21 Exam Location: [facility] Ht (in): 70 Wt (lb): 170 Ordering Physician: Vicky Figueroa Attending/Referring Phys: Wall Cleaner Meghan Flores RDCS Procedure CPT: Indications: per Dr. Etienne repeat to see if EF has changed Cardiac Hx: Covid Technical Quality: Technically difficult study Contrast 1: Total Dose (mL): Contrast 2: Total Dose (mL): MEASUREMENTS (Male / Female) Normal Values 2D ECHO LV Diastolic Diameter PLAX 3.9 cm 4.2 - 5.9 / 3.9 - 5.3 cm LV Systolic Diameter PLAX 2.8 cm IVS Diastolic Thickness 1.2 cm 0.6 - 1.0 / 0.6 - 0.9 cm LVPW Diastolic Thickness 1.6 cm 0.6 - 1.0 / 0.6 - 0.9 cm LV Relative Wall Thickness 0.7 FINDINGS Left Ventricle Limited study LV size and systolic function appears to be well-preserved. Poor visualization of cardiac structures overall Right Ventricle Right Atrium Left Atrium Mitral Valve Aortic Valve Tricuspid Valve Pulmonic Valve Pericardium Minimal pericardial effusion Aorta CONCLUSIONS Limited study difficult with limited views preserved systolic function probably trivial pericardial effusion Previewed by: Dr. Angelica Gutierrez MD (Electronically Signed) Final Date: 30 October 2021 09:54
--- NOTE | 2021-10-30 12:31 | P.PN ---
Subjective Progress Note Date: 10/30/21 Principal diagnosis: Acute hypoxic respiratory failure secondary to acute COPD exacerbation. This is a 76-year-old male patient, an ex-tobacco smoker, and active marijuana smoker, with known history of COPD, was coming in with increased dyspnea, cough chest tightness and wheezing. During this current admission, the patient also tested positive for: COVID 19. He states that he has already been vaccinated for: COVID 19 and he has taken to the vaccinations including one booster. The patient was in the hospital approximately a week ago after he had a bout of syncope. This was attributed to new onset atrial fibrillation and dehydration. He was given treatment. Echo of the heart showed an ejection fraction of 40-45% without any significant valvular abnormalities. The patient was started on metoprolol 50 mg by mouth twice a day and Eliquis 5 mg by mouth twice a day and the patient was discharged. The patient comes to the above-mentioned complaint of increased dyspnea cough and congestion. No hemoptysis. No pleurisy. No DVT or pulmonary embolism. The patient had limited troponin leak and the patient was started on IV heparin. EKG showing atrial fibrillation without any acute ischemic changes. Otherwise, the white cell count of 8 with a hemoglobin of 13. 4 and a platelet count of 263. PTT is therapeutic. The patient also has a proBNP level of 3960. Sodium is at 134 with a potassium level of 3.8 and chloride of 100 with a bicarb of 25. Creatinine is 28 with a creatinine of 1.5. The chest x-ray was clear. The patient's currently on 2 L O2 nasal cannula. No fever. No chills. No altered mentation. No change in taste or smell. No other complaints. CAT scan of the chest was done during his last admission showed some mild COPD. No other acute abnormalities of been noted. Reevaluated today on 10/29/21, patient is doing better today, breathing easier, nonetheless he continues to cough and wheeze. Patient is on 4 L nasal cannula, O2 sats is 97%. His chest x-ray showed no evidence of pneumonia, however patient did have positive Covid 19 PCR. But there is no evidence of pneumonia. WBC count today is 8.1 hemoglobin is 16. Patient is on heparin with PTT of 84.5. D-dimer is 1.26, basic metabolic profile is normal BUN is 28 creatinine 1.52. LDH 445 C-reactive protein is 2 BNP is elevated at 3960 Reevaluated today on 10/30/21, patient continues to have shortness of breath, coughing and wheezing. On physical examination he has diffuse rhonchi and wheezes noted bilaterally. Basic metabolic profile is normal, renal profile is normal, PTT is 54.7. CBC is relatively normal. Objective - Vital Signs Vital signs: Vital Signs Temp 98.4 F 10/30/21 08:00 Pulse 93 10/30/21 08:00 Resp 16 10/30/21 08:00 BP 129/91 10/30/21 08:00 Pulse Ox 93 L 10/30/21 08:00 FiO2 Intake & Output 10/29/21 10/30/21 10/30/21 18:59 06:59 18:59 Intake Total 382.266 120 Balance 382.266 120 Intake: Intake, IV Titration 142.266 Amount Heparin Sod,Pork in 0.45% 142.266 NaCl 25,000 unit In 0.45 % NaCl 1 250ml.bag @ 12 UNITS/KG/HR 9.253 mls/hr IV .Q24H [facility] Rx#: [id number] Oral 240 120 Other: Voiding Method Bedside Commode Toilet Toilet Urinal Urinal Urinal # Voids 1 1 1 - Exam Physical Exam: Revealed a 76-year-old white male in no distress. Head: Atraumatic, normocephalic. HEENT:[Neck is supple.] [No neck masses.] [No thyromegaly.] [No JVD.] Chest: Symmetrical chest expansion, rhonchi and wheezes noted bilaterally. Cardiac Exam: [Normal S1 and S2, no S3 gallop, no murmur.] Abdomen: [Soft, nontender, no megaly, no rebound, no guarding, normal bowel sounds.] Extremities: [No clubbing, no edema, no cyanosis.] Neurological Exam: [No focal neurologic deficit.] Alert oriented 3. Psychiatric: Normal mood, affect and normal mental status examination. Skin: No rashes. - Labs CBC & Chem 7: 10/29/21 07:12 10/30/21 07:24 Labs: Abnormal Lab Results - Last 24 Hours (Table) 10/29/21 10/29/21 10/30/21 Range/Units 16:55 23:42 07:24 APTT 39.9 H 54.7 H (22.0-30.0) sec Sodium 136 L (137-145) mmol/L Carbon Dioxide 21 L (22-30) mmol/L BUN 32 H (9-20) mg/dL Glucose 140 H (74-99) mg/dL Calcium 7.9 L (8.4-10.2) mg/dL Assessment and Plan Assessment: Impression: Acute hypoxic respiratory failure secondary to acute exacerbation of COPD, no evidence of infiltrates on chest x-ray. Acute COVID-19 infection, patient is vaccinated 3 Chronic atrial fibrillation Troponin leak. 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 Recommendation: Follow-up chest x-ray to be done today. Continue bronchodilators and IV Solu-Medrol. Continue Symbicort. Continue COVID-19 cocktail. Cut down on IV fluids Monitor COVID-19 inflammatory markers. Procalcitonin is not elevated Consider switching heparin to eliquis. This is to be decided upon by cardiology Not quite ready for discharge planning. Time with Patient: Less than 30
--- NOTE | 2021-10-30 12:50 | P.PN ---
Subjective This is a 76-year-old male with a past medical history significant for paroxysmal atrial fibrillation recently diagnosed, COPD, diverticulitis, marij uana use and former nicotine dependence. Patient does not follow with a automotive quality engineer. We have been asked to see the patient in consultation for elevated troponin. Patient presents to the ER with increased dyspnea, cough chest tightness and wheezing. Patient found to be Covid-19 positive. The patient was recently admitted 1 week ago for syncope, this was found to be secondary to new onset atrial fibrillation and dehydration Echo revealed ejection fraction of 40-45% with global hypokinesis. The patient was started on metoprolol 50 mg BID and Eliquis 5 mg BID. Echocardiogram- limited study LV size and systolic function appears to be well- preserved. Poor visualization of cardiac structures overall. Patient seen and examined at bedside, distress. He continues to have chills, shortness of breath and cough. This has remained afebrile. He states his breathing has improved since admission. He denies any chest pain or palpitations. He continues to be in atrial fibrillation with controlled ventricular rates. Meds: IV heparin, metoprolol tartrate 50 mg twice a day Blood pressure 129/91, heart rate 93, afebrile, oxygen saturation 73% on 4 L nasal cannula GENERAL: In no acute distress. NECK: Supple without JVD LUNGS: Breath sounds rhonchi bilaterally to auscultation bilaterally. Respiration equal and unlabored. No wheezes, rales or rhonchi. HEART: Irregular rate and rhythm. No rubs or gallops. S1 and S2 heard. EXTREMITIES: Normal range of motion, no edema. No clubbing or cyanosis. Peripheral pulses intact. 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 EF 40-45% COPD Diverticulitis Former nicotine dependence History of tonsilar cancer PLAN Continue metoprolol tartrate 50mg BID Checked Xarelto and Eliquis coverage for patient, due to deductible medication will be around $400 copay We will start coumadin Daily PT/INR Patient states he has an appointment in November with a automotive quality engineer closer to home in [facility] or will follow in [place] based on his preference Further recommendations based on clinical course Nurse Practitioner note has been reviewed, I agree with a documented findings and plan of care. Patient was seen and examined. Objective - Vital Signs Vital signs: Vital Signs Temp 98.4 F 10/30/21 08:00 Pulse 93 10/30/21 08:00 Resp 16 10/30/21 08:00 BP 129/91 10/30/21 08:00 Pulse Ox 93 L 10/30/21 08:00 FiO2 Intake & Output 10/29/21 10/30/21 10/30/21 18:59 06:59 18:59 Intake Total 382.266 120 Balance 382.266 120 Intake: Intake, IV Titration 142.266 Amount Heparin Sod,Pork in 0.45% 142.266 NaCl 25,000 unit In 0.45 % NaCl 1 250ml.bag @ 12 UNITS/KG/HR 9.253 mls/hr IV .Q24H [facility] Rx#: [id number] Oral 240 120 Other: Voiding Method Bedside Commode Toilet Urinal Urinal # Voids 1 1 1 - Labs CBC & Chem 7: 10/29/21 07:12 10/30/21 07:24 Labs: Abnormal Lab Results - Last 24 Hours (Table) 10/29/21 10/29/21 10/30/21 Range/Units 16:55 23:42 07:24 APTT 39.9 H 54.7 H (22.0-30.0) sec Sodium 136 L (137-145) mmol/L Carbon Dioxide 21 L (22-30) mmol/L BUN 32 H (9-20) mg/dL Glucose 140 H (74-99) mg/dL Calcium 7.9 L (8.4-10.2) mg/dL
--- NOTE | 2021-10-30 13:12 | XR ---
EXAMINATION TYPE: XR chest 1V portable DATE OF EXAM: 10/30/2021 COMPARISON: 10/28/2021 HISTORY: Shortness of breath TECHNIQUE: Single frontal view of the chest is obtained. FINDINGS: There is no focal air space opacity, pleural effusion, or pneumothorax seen. The cardiac silhouette size is within normal limits. The osseous structures are intact. Subsegmental linear gavin nges left lung base. Metallic density overlying the right chest could be related to foreign body or s uperficial patient was stable. Arthropathy of the shoulders.. Mild hyperinflation. IMPRESSION: 1. Correlate for mild COPD. Retrocardiac basilar atelectasis favored over early pneumonia. Correlate clinically.
[2021-10-30 13:35] LABS: INR 1.1 (<1.2); Prothrombin Time 11.4 sec (9.0-12.0)
[2021-10-30] MEDS ORDERED: FUROSEMIDE 10 MG/ML 4 ML VIAL IV STA (17:02)
[2021-10-30] MEDS ORDERED: WARFARIN 5 MG TAB PO ONE (18:00)
--- NOTE | 2021-10-30 20:12 | P.PN ---
Subjective Progress Note Date: 10/30/21 76-year-old male patient, history of COPD, was coming in with increased dyspnea, cough chest tightness and wheezing. During this current admission, the patient also tested positive for: COVID 19. He states that he has already been vaccinated for: COVID 19 and he has taken to the vaccinations including one booster. The patient was in the hospital approximately a week ago after he had a bout of syncope. This was attributed to new onset atrial fibrillation and dehydration. He was given treatment. Echo of the heart showed an ejection fraction of 40-45% without any significant valvular abnormalities. The patient was started on metoprolol 50 mg by mouth twice a day and Eliquis 5 mg by mouth twice a day and the patient was discharged. The patient comes to the above- mentioned complaint of increased dyspnea cough and congestion. No hemoptysis. No pleurisy. No DVT or pulmonary embolism. The patient had limited troponin leak and the patient was started on IV heparin. EKG showing atrial fibrillation without any acute ischemic changes. Otherwise, the white cell count of 8 with a hemoglobin of 13.4 and a platelet count of 263. PTT is therapeutic. The patient also has a proBNP level of 3960. Sodium is at 134 with a potassium level of 3.8 and chloride of 100 with a bicarb of 25. Creatinine is 28 with a creatinine of 1.5. The chest x-ray was clear. 10/29/2021 Patient is seen and evaluated and follow-up continues on 4 L via nasal cannula. Pulmonary following along with cardiology and patient is maintained on IV heparin along with IV steroids and vitamin supplements. Patient is vaccinated x3 for covid. Patient also with chf and copd history. Prtient was not a candidate f or Remdesivir. ACS ruled out and will need to discuss with cardiology about anticoagulation. Patient is afebrile and denies chest pain or worsening shortness of breath. Patient denies any nausea or vomiting and tolerating diet. 10/30/2021 Patient is evaluated today and continues to have some shortness of breath and is being closely monitored with pulmonary and cardiology following. Patient is on 4L via NC and continued on inhalers, vitamin supplements, IV steroids, and IV heparin. Cardiology following and being transitioned to oral coumadin with pharmacy to dose. Patient was receiving some IV fluids and will discontinue. A dose of IV lasix given. Encouraged increased activity as tolerated. Patient is afebrile and denies chest pain or palpitations. Encouraged oral intake. Review of systems: Constitutional: reports of fatigue, no fever, or chills Cardiovascular: No reports of chest pain or palpitations Respiratory: No reports of worsening shortness of breath GI: No reports of nausea, vomiting, or diarrhea : No reports of dysuria or retention Neurovascular: No reports of weakness or numbness All medications have been reviewed Active Medications Acetaminophen (Acetaminophen Tab 325 Mg Tab) 650 mg PO Q6HR PRN PRN Reason: Mild Pain or Fever > 100.5 Last Admin: 10/29/21 02:12 Dose: 650 mg Albuterol Sulfate (Albuterol Hfa Inhaler) 2 puff INHALATION RT-QID [facility] Last Admin: 10/30/21 15:59 Dose: 2 puff Budesonide/Formoterol Fumarate (Symbicort 160-4.5 Mcg Inhaler) 2 puff INHALATION RT-BID [facility] Last Admin: 10/30/21 07:26 Dose: 2 puff Heparin Sodium (Porcine) (Heparin Sodium 1,000 Un/Ml (10ml Vl)) 0 unit IV PER PROTOCOL PRN; Protocol PRN Reason: Low PTT Heparin Sodium/Sodium Chloride (25,000 unit/ Sodium Chloride) 250 mls @ 9.253 m ls/hr IV .Q24H [facility]; Protocol Last Admin: 10/30/21 06:12 Dose: Not Given Lorazepam (Lorazepam 0.5 Mg Tab) 0.5 mg PO TID PRN PRN Reason: Agitation or Acute Anxiety Last Admin: 10/28/21 13:13 Dose: 0.5 mg Methylprednisolone Sodium Succinate (Methylprednisolone Sod Succi 125 Mg/2 Ml Vial) 60 mg IV Q6HR [facility] Last Admin: 10/30/21 16:50 Dose: 60 mg Metoprolol Tartrate (Metoprolol Tartrate 50 Mg Tab) 50 mg PO BID [facility] Last Admin: 10/30/21 20:05 Dose: 50 mg Miscellaneous Information (Warfarin Per Pharmacy) 1 each MISCELLANE DIRECTED PRN; Protocol PRN Reason: Per Protocol Naloxone HCl (Naloxone 0.4 Mg/Ml 1 Ml Vial) 0.2 mg IV Q2M PRN PRN Reason: Opioid Reversal Sertraline HCl (Sertraline 50 Mg Tab) 50 mg PO DAILY [facility] Last Admin: 10/30/21 09:33 Dose: 50 mg Tamsulosin HCl (Tamsulosin 0.4 Mg Cap.Er.24h) 0.4 mg PO DAILY [facility] Last Admin: 10/30/21 09:33 Dose: 0.4 mg Physical exam: Gen: This is a 76 year old male who is awake, alert and oriented x3. Thin built HEENT: Head is atraumatic, normocephalic. Pupils equal, round. Sclerae is anicteric. NECK: Supple. No JVD. No lymphadenopathy. No thyromegaly. LUNGS: diminished breath sounds with some scattered rhonchi and expiratory wheezing noted No intercostal retractions. HEART: S1, S2 muffled ABDOMEN: Soft. Bowel sounds are present. No masses. No tenderness. EXTREMITIES: No pedal edema. No calf tenderness. NEUROLOGICAL: Patient is awake, alert and oriented x3. Cranial nerves 2 through 12 are grossly intact. Assessment: -Acute hypoxic respiratory failure; likely related to COPD exacerbation -COVID-19 infection -Acute exacerbation COPD -Chronic atrial fibrillation; remains rate controlled and is anticoagulated with IV heparin -Elevated troponin; likely troponin leak due to acute respiratory failure -CAD/chronic systolic CHF; patient has an ejection fraction of 40-45% -Acute renal injury -DVT prophylaxis; SCDs/systemic anticoagulation -full code Plan: Recommend to continue current medications and supplemental oxygen therapy. Patient is maintained on 4L via nc. Patient also receiving IV steroids, albuterol inhaler, IV heparin, and vitamin supplements and will continue. Cardiology following and continued on IV heparin and being transitioned to coumadin Recommend holding diuretics for now and recommend repeat labs. recommend discontinuing IV fluids. Kidney functions improving Encouraged increased activity as tolerated Recommend repeat chest xray in the am Due to multiple complex medical issues, prognosis is guarded. The impression and plan of care has been dictated by Charline Moser, Nurse Practitioner as directed. Dr. Ted MD I have performed a history and examination and MDM of this patient, discussed the same with the dictator, and agree with the dictator's assessment and plan as written ,documented as a scribe. Based on total visit time, I have performed more than 50% of the visit. Objective - Vital Signs Vital signs: Vital Signs Temp 97.8 F 10/30/21 03:38 Pulse 91 10/30/21 03:38 Resp 12 10/30/21 03:38 BP 141/99 10/30/21 03:38 Pulse Ox 96 10/30/21 07:29 FiO2 Intake & Output 10/29/21 10/30/21 10/30/21 18:59 06:59 18:59 Intake Total 382.266 Balance 382.266 Intake: Intake, IV Titration 142.266 Amount Heparin Sod,Pork in 0.45% 142.266 NaCl 25,000 unit In 0.45 % NaCl 1 250ml.bag @ 12 UNITS/KG/HR 9.253 mls/hr IV .Q24H [facility] Rx#: [id number] Oral 240 Other: Voiding Method Bedside Commode Toilet Urinal Urinal # Voids 1 1 - Labs CBC & Chem 7: 10/29/21 07:12 10/30/21 07:24 Labs: Abnormal Lab Results - Last 24 Hours (Table) 10/29/21 10/29/21 10/30/21 Range/Units 16:55 23:42 07:24 APTT 39.9 H 54.7 H (22.0-30.0) sec Sodium 136 L (137-145) mmol/L Carbon Dioxide 21 L (22-30) mmol/L BUN 32 H (9-20) mg/dL Glucose 140 H (74-99) mg/dL Calcium 7.9 L (8.4-10.2) mg/dL
[2021-10-31] MEDS: methylPREDNISolone SOD SUCCI 125 MG/2 ML VIAL IV SCH ×5 (05:08→23:53)
[2021-10-31] MEDS: HEPARIN SOD,PORK IN 0.45% NACL 25,000 UNIT in 0.45% NACL 1 250ML.BAG IV SCH ×2 (05:16→23:54)
[2021-10-31] MEDS: SYMBICORT 160-4.5 MCG INHALER INHALATION SCH ×2 (07:29→20:57)
[2021-10-31] MEDS: ALBUTEROL HFA INHALER INHALATION SCH ×4 (07:29→20:57)
[2021-10-31] MEDS: SERTRALINE 50 MG TAB PO SCH (08:24)
[2021-10-31] MEDS: METOPROLOL TARTRATE 50 MG TAB PO SCH ×2 (08:24→20:04)
[2021-10-31] MEDS: TAMSULOSIN 0.4 MG CAP.ER.24H PO SCH (08:24)
[2021-10-31 09:53] LABS: INR 1.1 (<1.2); Partial Thromboplastin Time 36.1 sec (22.0-30.0); Prothrombin Time 11.4 sec (9.0-12.0)
[2021-10-31] MEDS ORDERED: FUROSEMIDE 10 MG/ML 2 ML VIAL IV ONE (10:00)
[2021-10-31 10:23] LABS: Basophils % (A) 0 %; Eosinophils % (A) 0 %; HCT 47.5 % (39.0-53.0); Lymphocytes # (A) 0.4 k/uL (1.0-4.8); Lymphocytes % (A) 2 %; MCH 29.4 pg (25.0-35.0); MCHC 31.5 g/dL (31.0-37.0); MCV 93.3 fL (80.0-100.0); Mean Platelet Volume 8.4; Monocytes # (A) 0.3 k/uL (0-1.0); Monocytes % (A) 2 %; Neutrophils # (A) 18.2 k/uL (1.3-7.7); Neutrophils % (A) 96 %; Platelet Count 249 k/uL (150-450); RBC 5.09 m/uL (4.30-5.90); RDW 14.1 % (11.5-15.5); WBC 19.1 k/uL (3.8-10.6)
[2021-10-31 10:29] LABS: Calcium 8.1 mg/dL (8.4-10.2); Potassium 3.8 mmol/L (3.5-5.1)
--- NOTE | 2021-10-31 12:34 | P.PN ---
Subjective This is a 76-year-old male with a past medical history significant for paroxysmal atrial fibrillation recently diagnosed, COPD, diverticulitis, marij uana use and former nicotine dependence. Patient does not follow with a sewer pipe cleaner. We have been asked to see the patient in consultation for elevated troponin. Patient presents to the ER with increased dyspnea, cough chest tightness and wheezing. Patient found to be Covid-19 positive. The patient was recently admitted 1 week ago for syncope, this was found to be secondary to new onset atrial fibrillation and dehydration Echo revealed ejection fraction of 40-45% with global hypokinesis. The patient was started on metoprolol 50 mg BID and Eliquis 5 mg BID. Echocardiogram- limited study LV size and systolic function appears to be well- preserved. Poor visualization of cardiac structures overall. Patient seen and examined at bedside, distress. He continues to have shortness of breath, but improved on admission. He continues to have cough, non- productive. He denies any chills. This has remained afebrile. He denies any chest pain or palpitations. He continues to be in atrial fibrillation with controlled ventricular rates. Meds: IV heparin, Lasix 20m0g daily, Coumadin 5mg given yesterday, metoprolol tartrate 50 mg twice a day, Was given IV Lasix 20 mg Yesterday Labs: WBC 19.1, sodium 135, potassium 3.8, BUN 39, serum creatinine 1.29 Blood pressure 152/105, heart rate 109, afebrile, oxygen saturation 95% on 4 L nasal cannula GENERAL: In no acute distress. NECK: Supple without JVD LUNGS: Breath sounds rhonchi bilaterally to auscultation bilaterally. Respiration equal and unlabored. No wheezes, rales or rhonchi. HEART: Irregular rate and rhythm. No rubs or gallops. S1 and S2 heard. EXTREMITIES: Normal range of motion, no edema. No clubbing or cyanosis. Peripheral pulses intact. 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 EF 40-45% COPD Diverticulitis Former nicotine dependence History of tonsilar cancer PLAN Continue metoprolol tartrate 50mg BID Checked Xarelto and Eliquis coverage for patient, due to deductible medication will be around $400 copay. Coumadin started, Give 7.5mg today Daily PT/INR Patient states he has an appointment in November with a sewer pipe cleaner closer to home in [facility] or will follow in [place] based on his preference Further recommendations based on clinical course Nurse Practitioner note has been reviewed, I agree with a documented findings and plan of care. Patient was seen and examined. Objective - Vital Signs Vital signs: Vital Signs Temp 96.8 F L 10/31/21 08:00 Pulse 109 H 10/31/21 08:00 Resp 18 10/31/21 08:00 BP 152/105 10/31/21 08:00 Pulse Ox 95 10/31/21 08:00 FiO2 Intake & Output 10/30/21 10/31/21 10/31/21 18:59 06:59 18:59 Intake Total 360 Balance 360 Intake: Oral 360 Other: Voiding Method Toilet Toilet Urinal Urinal # Voids 2 3 1 - Labs CBC & Chem 7: 10/31/21 08:54 10/31/21 08:54 Labs: Abnormal Lab Results - Last 24 Hours (Table) 10/30/21 10/31/21 10/31/21 Range/Units 12:56 08:54 08:54 WBC 19.1 H (3.8-10.6) k/uL Neutrophils # 18.2 H (1.3-7.7) k/uL Lymphocytes # 0.4 L (1.0-4.8) k/uL APTT 46.8 H 36.1 H (22.0-30.0) sec Sodium (137-145) mmol/L BUN (9-20) mg/dL Creatinine (0.66-1.25) mg/dL Glucose (74-99) mg/dL Calcium (8.4-10.2) mg/dL 10/31/21 Range/Units 08:54 WBC (3.8-10.6) k/uL Neutrophils # (1.3-7.7) k/uL Lymphocytes # (1.0-4.8) k/uL APTT (22.0-30.0) sec Sodium 135 L (137-145) mmol/L BUN 39 H (9-20) mg/dL Creatinine 1.29 H (0.66-1.25) mg/dL Glucose 238 H (74-99) mg/dL Calcium 8.1 L (8.4-10.2) mg/dL
--- NOTE | 2021-10-31 14:10 | XR ---
EXAMINATION TYPE: XR chest 1V portable DATE OF EXAM: 10/31/2021 COMPARISON: 10/30/2021 INDICATION: covid infection TECHNIQUE: Single frontal view of the chest is obtained. FINDINGS: The heart size is normal. The pulmonary vasculature is normal. No suspicious focal consolidations are evident. IMPRESSION: 1. No acute pulmonary process.
--- NOTE | 2021-10-31 14:35 | P.PN ---
Subjective Progress Note Date: 10/31/21 Principal diagnosis: Shortness of breath This is a 76-year-old male patient, an ex-tobacco smoker, and active marijuana smoker, with known history of COPD, was coming in with increased dyspnea, cough chest tightness and wheezing. During this current admission, the patient also tested positive for: COVID 19. He states that he has already been vaccinated for: COVID 19 and he has taken to the vaccinations including one booster. The patient was in the hospital approximately a week ago after he had a bout of syncope. This was attributed to new onset atrial fibrillation and dehydration. He was given treatment. Echo of the heart showed an ejection fraction of 40-45% without any significant valvular abnormalities. The patient was started on metoprolol 50 mg by mouth twice a day and Eliquis 5 mg by mouth twice a day and the patient was discharged. The patient comes to the above-mentioned complaint of increased dyspnea cough and congestion. No hemoptysis. No pleurisy. No DVT or pulmonary embolism. The patient had limited troponin leak and the patient was started on IV heparin. EKG showing atrial fibrillation without any acute ischemic changes. Otherwise, the white cell count of 8 with a hemoglobin of 13.4 and a platelet count of 263. PTT is therapeutic. The patient also has a proBNP level of 3960. Sodium is at 134 with a potassium level of 3.8 and c hloride of 100 with a bicarb of 25. Creatinine is 28 with a creatinine of 1.5. The chest x-ray was clear. The patient's currently on 2 L O2 nasal cannula. No fever. No chills. No altered mentation. No change in taste or smell. No other complaints. CAT scan of the chest was done during his last admission showed some mild COPD. No other acute abnormalities of been noted. Reevaluated today on 10/29/21, patient is doing better today, breathing easier, nonetheless he continues to cough and wheeze. Patient is on 4 L nasal cannula, O2 sats is 97%. His chest x-ray showed no evidence of pneumonia, however patient did have positive Covid 19 PCR. But there is no evidence of pneumonia. WBC count today is 8.1 hemoglobin is 16. Patient is on heparin with PTT of 84.5. D-dimer is 1.26, basic metabolic profile is normal BUN is 28 creatinine 1.52. LDH 445 C-reactive protein is 2 BNP is elevated at 3960 Reevaluated today on 10/30/21, patient continues to have shortness of breath, coughing and wheezing. On physical examination he has diffuse rhonchi and wheezes noted bilaterally. Basic metabolic profile is normal, renal profile is normal, PTT is 54.7. CBC is relatively normal. On 10/31/2021 patient seen in follow-up on selective care unit. He is awake and alert, in no acute distress, satting 95% on 4 L. He was given a dose of IV Lasix yesterday and has diabetes, he states he thinks his breathing has improved with the Lasix dose. He continues on high-dose IV steroids, Symbicort, and albuterol. Chest x-ray showing mild COPD, retrocardiac basilar atelectasis. Serum procalcitonin level was low at 0.10 on admission. Follow-up chest x-ray today showing no acute pulmonary process. Patient remains on heparin infusion and Coumadin has been started, today's INR is 1.1. The rest of blood work has been noted, white blood cell count is 19.1, hemoglobin is 15.0, sodium is 135, potassium is 3.8, BUN is 39, and creatinine is 1.29. Objective - Vital Signs Vital signs: Vital Signs Temp 96.8 F L 10/31/21 08:00 Pulse 109 H 10/31/21 08:00 Resp 18 10/31/21 08:00 BP 152/105 10/31/21 08:00 Pulse Ox 95 10/31/21 08:00 FiO2 Intake & Output 10/30/21 10/31/21 10/31/21 18:59 06:59 18:59 Intake Total 360 107.734 Balance 360 107.734 Intake: Intake, IV Titration 107.734 Amount Heparin Sod,Pork in 0.45% 107.734 NaCl 25,000 unit In 0.45 % NaCl 1 250ml.bag @ 12 UNITS/KG/HR 9.253 mls/hr IV .Q24H [facility] Rx#: [id number] Oral 360 Other: Voiding Method Toilet Toilet Toilet Urinal Urinal Urinal # Voids 2 3 1 - Exam GENERAL EXAM: Alert, very pleasant 76-year-old on 4 L of oxygen pulse ox of 95%, breathing more comfortably, comfortable in no apparent distress. HEAD: Normocephalic/atraumatic. EYES: Normal reaction of pupils, equal size. Conjunctiva pink, sclera white. NOSE: Clear with pink turbinates. THROAT: No erythema or exudates. NECK: No masses, no JVD, no thyroid enlargement, no adenopathy. CHEST: No chest wall deformity. Symmetrical expansion. LUNGS: Equal air entry with diffuse wheezes CVS: Irregular rate and rhythm, normal S1 and S2, no gallops, no murmurs, no rubs ABDOMEN: Soft, nontender. No hepatosplenomegaly, normal bowel sounds, no guarding or rigidity. EXTREMITIES: No clubbing, no edema, no cyanosis, 2+ pulses and upper and lower extremities. MUSCULOSKELETAL: Muscle strength and tone normal. SPINE: No scoliosis or deformity SKIN: No rashes CENTRAL NERVOUS SYSTEM: Alert and oriented -3. No focal deficits, tone is normal in all 4 extremities. PSYCHIATRIC: Alert and oriented -3. Appropriate affect. Intact judgment and insight. - Labs CBC & Chem 7: 10/31/21 08:54 10/31/21 08:54 Labs: Abnormal Lab Results - Last 24 Hours (Table) 10/31/21 10/31/21 10/31/21 Range/Units 08:54 08:54 08:54 WBC 19.1 H (3.8-10.6) k/uL Neutrophils # 18.2 H (1.3-7.7) k/uL Lymphocytes # 0.4 L (1.0-4.8) k/uL APTT 36.1 H (22.0-30.0) sec Sodium 135 L (137-145) mmol/L BUN 39 H (9-20) mg/dL Creatinine 1.29 H (0.66-1.25) mg/dL Glucose 238 H (74-99) mg/dL Calcium 8.1 L (8.4-10.2) mg/dL Assessment and Plan Plan: Assessment: #1. Acute hypoxic respiratory failure secondary to acute exacerbation of COPD, and COVID-19 infection. #2. Status post completed vaccination for COVID-19, 3 #3. Chronic atrial fibrillation #4. Troponin leak #5. Chronic systolic CHF with ejection fraction of 40-45% #6. History of tonsillar cancer requiring radiation therapy systemic chemotherapy #7. Acute kidney injury, improving Plan: Follow-up chest x-ray has been reviewed showing clearance of the retrocardiac opacity Patient responded well to diuretics Breathing easier, Will given patient another dose of IV Lasix, and start maintenance dose of Lasix 20 mg daily Patient continues on heparin infusion as a bridge for Coumadin, cardiology is managing Continue IV steroids Continue Symbicort and albuterol Continue to follow I have personally seen and examined the patient, performed the documentation and the assessment and plan as written. Number of minutes spent on the visit: [10] Time with Patient: Less than 30
--- NOTE | 2021-10-31 15:02 | P.PN ---
Subjective Progress Note Date: 10/31/21 76-year-old male patient, history of COPD, was coming in with increased dyspnea, cough chest tightness and wheezing. During this current admission, the patient also tested positive for: COVID 19. He states that he has already been vaccinated for: COVID 19 and he has taken to the vaccinations including one booster. The patient was in the hospital approximately a week ago after he had a bout of syncope. This was attributed to new onset atrial fibrillation and dehydration. He was given treatment. Echo of the heart showed an ejection fraction of 40-45% without any significant valvular abnormalities. The patient was started on metoprolol 50 mg by mouth twice a day and Eliquis 5 mg by mouth twice a day and the patient was discharged. The patient comes to the above- mentioned complaint of increased dyspnea cough and congestion. No hemoptysis. No pleurisy. No DVT or pulmonary embolism. The patient had limited troponin leak and the patient was started on IV heparin. EKG showing atrial fibrillation without any acute ischemic changes. Otherwise, the white cell count of 8 with a hemoglobin of 13.4 and a platelet count of 263. PTT is therapeutic. The patient also has a proBNP level of 3960. Sodium is at 134 with a potassium level of 3.8 and chloride of 100 with a bicarb of 25. Creatinine is 28 with a creatinine of 1.5. The chest x-ray was clear. 10/29/2021 Patient is seen and evaluated and follow-up continues on 4 L via nasal cannula. Pulmonary following along with cardiology and patient is maintained on IV heparin along with IV steroids and vitamin supplements. Patient is vaccinated x3 for covid. Patient also with chf and copd history. Prtient was not a candidate f or Remdesivir. ACS ruled out and will need to discuss with cardiology about anticoagulation. Patient is afebrile and denies chest pain or worsening shortness of breath. Patient denies any nausea or vomiting and tolerating diet. 10/30/2021 Patient is evaluated today and continues to have some shortness of breath and is being closely monitored with pulmonary and cardiology following. Patient is on 4L via NC and continued on inhalers, vitamin supplements, IV steroids, and IV heparin. Cardiology following and being transitioned to oral coumadin with pharmacy to dose. Patient was receiving some IV fluids and will discontinue. A dose of IV lasix given. Encouraged increased activity as tolerated. Patient is afebrile and denies chest pain or palpitations. Encouraged oral intake. 10/31/2021 Patient is seen today continues to be on 4 L and will likely require home oxygen to manage his COPD. Will perform home O2 eval closer to discharge. Encouraged incentive spirometer use and weaning FiO2 as tolerated. Pulmonary and cardiology following closely and patient is maintained on IV steroids along with inhalers and vitamin supplements and will continue. Patient was on IV heparin which is being discontinued and has been started on Coumadin with pharmacy to dose. INR is 1.1 today. Encouraged the patient increased activity as tolerated as patient is mostly sleeping all day. Patient is afebrile and denies worsening shortness of breath or chest pains. Patient denies nausea or vomiting and is tolerating diet. Patient had follow-up chest x-ray which shows no acute pulmonary process. Per nursing staff patient lung sounds congested and was given a dose of Lasix per pulmonary. Patient will be started on oral Lasix daily. Review of systems: Constitutional: reports of fatigue, no fever, or chills Cardiovascular: No reports of chest pain or palpitations Respiratory: No reports of worsening shortness of breath, although continues to report shortness of breath and cough GI: No reports of nausea, vomiting, or diarrhea : No reports of dysuria or retention Neurovascular: No reports of weakness or numbness All medications have been reviewed Active Medications Acetaminophen (Acetaminophen Tab 325 Mg Tab) 650 mg PO Q6HR PRN PRN Reason: Mild Pain or Fever > 100.5 Last Admin: 10/29/21 02:12 Dose: 650 mg Albuterol Sulfate (Albuterol Hfa Inhaler) 2 puff INHALATION RT-QID [facility] Last Admin: 10/31/21 11:20 Dose: 2 puff Budesonide/Formoterol Fumarate (Symbicort 160-4.5 Mcg Inhaler) 2 puff INHALATION RT-BID [facility] Last Admin: 10/31/21 07:29 Dose: 2 puff Furosemide (Furosemide 20 Mg Tab) 20 mg PO DAILY [facility] Heparin Sodium (Porcine) (Heparin Sodium 1,000 Un/Ml (10ml Vl)) 0 unit IV PER PROTOCOL PRN; Protocol PRN Reason: Low PTT Heparin Sodium/Sodium Chloride (25,000 unit/ Sodium Chloride) 250 mls @ 9.253 mls/hr IV .Q24H [facility]; Protocol Last Titration: 10/31/21 13:01 Dose: Infused Lorazepam (Lorazepam 0.5 Mg Tab) 0.5 mg PO TID PRN PRN Reason: Agitation or Acute Anxiety Last Admin: 10/28/21 13:13 Dose: 0.5 mg Methylprednisolone Sodium Succinate (Methylprednisolone Sod Succi 125 Mg/2 Ml Vial) 60 mg IV Q6HR [facility] Last Admin: 10/31/21 12:57 Dose: 60 mg Metoprolol Tartrate (Metoprolol Tartrate 50 Mg Tab) 50 mg PO BID [facility] Last Admin: 10/31/21 08:24 Dose: 50 mg Miscellaneous Information (Warfarin Per Pharmacy) 1 each MISCELLANE DIRECTED PRN; Protocol PRN Reason: Per Protocol Naloxone HCl (Naloxone 0.4 Mg/Ml 1 Ml Vial) 0.2 mg IV Q2M PRN PRN Reason: Opioid Reversal Sertraline HCl (Sertraline 50 Mg Tab) 50 mg PO DAILY [facility] Last Admin: 10/31/21 08:24 Dose: 50 mg Tamsulosin HCl (Tamsulosin 0.4 Mg Cap.Er.24h) 0.4 mg PO DAILY [facility] Last Admin: 10/31/21 08:24 Dose: 0.4 mg Warfarin Sodium (Warfarin 7.5 Mg Tab) 7.5 mg PO ONCE@1800 ONE Stop: 10/31/21 18:01 Physical exam: Gen: This is a 76 year old male who is awake, alert and oriented x3. Thin built HEENT: Head is atraumatic, normocephalic. Pupils equal, round. Sclerae is anicteric. NECK: Supple. No JVD. No lymphadenopathy. No thyromegaly. LUNGS: diminished breath sounds with some scattered rhonchi and expiratory wheezing noted No intercostal retractions. HEART: S1, S2 muffled ABDOMEN: Soft. Bowel sounds are present. No masses. No tenderness. EXTREMITIES: No pedal edema. No calf tenderness. NEUROLOGICAL: Patient is awake, alert and oriented x3. Cranial nerves 2 through 12 are grossly intact. Assessment: -Acute hypoxic respiratory failure; likely related to COPD exacerbation -COVID-19 infection -Acute exacerbation COPD -Chronic atrial fibrillation; remains rate controlled and is anticoagulated with Coumadin -Elevated troponin; likely troponin leak due to acute respiratory failure -CAD/chronic systolic CHF; patient has an ejection fraction of 40-45% -Acute renal injury -DVT prophylaxis; SCDs/systemic anticoagulation -full code Plan: Recommend to continue current medications and supplemental oxygen therapy. Patient is maintained on 4L via nc. Patient also receiving IV steroids, albuterol inhaler, Coumadin, and vitamin supplements and will continue. Cardiology following and has discontinued IV heparin and being maintained on coumadin Recommend low-dose diuretics and recommend repeat labs. Encouraged increased activity as tolerated Due to multiple complex medical issues, prognosis is guarded. Patient will require home oxygen 4 L via nasal cannula to manage COPD and CHF The impression and plan of care has been dictated by Charline Moser, Nurse Practitioner as directed. Dr. Tanika MD I have performed a history and examination and MDM of this patient, discussed the same with the dictator, and agree with the dictator's assessment and plan as written ,documented as a scribe. Based on total visit time, I have performed more than 50% of the visit. Objective - Vital Signs Vital signs: Vital Signs Temp 96.8 F L 10/31/21 08:00 Pulse 109 H 10/31/21 08:00 Resp 18 10/31/21 08:00 BP 152/105 10/31/21 08:00 Pulse Ox 95 10/31/21 08:00 FiO2 Intake & Output 10/30/21 10/31/21 10/31/21 18:59 06:59 18:59 Intake Total 360 Balance 360 Intake: Oral 360 Other: Voiding Method Toilet Toilet Urinal Urinal # Voids 2 3 1 - Labs CBC & Chem 7: 10/31/21 08:54 10/31/21 08:54 Labs: Abnormal Lab Results - Last 24 Hours (Table) 10/30/21 Range/Units 12:56 APTT 46.8 H (22.0-30.0) sec
[2021-10-31] MEDS ORDERED: WARFARIN 5 MG TAB PO ONE (18:00)
[2021-10-31] MEDS ORDERED: WARFARIN 7.5 MG TAB PO ONE (18:00)
[2021-10-31] MEDS: ACETAMINOPHEN TAB 325 MG TAB PO PRN (20:04)
[2021-10-31] MEDS: SODIUM CHLORIDE 0.9% 1,000 ML IV SCH (21:12)
[2021-11-01 06:12] LABS: Glucose,Whole Blood 149 mg/dL (70-110)
[2021-11-01] MEDS: methylPREDNISolone SOD SUCCI 125 MG/2 ML VIAL IV SCH (06:33)
[2021-11-01 06:55] LABS: INR 1.5 (<1.2); Partial Thromboplastin Time 90.3 sec (22.0-30.0); Prothrombin Time 15.5 sec (9.0-12.0)
[2021-11-01 07:02] LABS: Calcium 8.3 mg/dL (8.4-10.2); Potassium 3.7 mmol/L (3.5-5.1)
[2021-11-01 07:57] LABS: Basophils % (A) 0 %; Eosinophils % (A) 0 %; HCT 47.1 % (39.0-53.0); HGB 14.8 gm/dL (13.0-17.5); Lymphocytes # (A) 0.5 k/uL (1.0-4.8); Lymphocytes % (A) 3 %; MCH 28.7 pg (25.0-35.0); MCHC 31.5 g/dL (31.0-37.0); MCV 91.3 fL (80.0-100.0); Mean Platelet Volume 8.6; Monocytes # (A) 0.6 k/uL (0-1.0); Monocytes % (A) 4 %; Neutrophils # (A) 14.6 k/uL (1.3-7.7); Neutrophils % (A) 93 %; Platelet Count 222 k/uL (150-450); RBC 5.16 m/uL (4.30-5.90); RDW 13.9 % (11.5-15.5); WBC 15.8 k/uL (3.8-10.6)
[2021-11-01] MEDS: SYMBICORT 160-4.5 MCG INHALER INHALATION SCH (08:15)
[2021-11-01] MEDS: ALBUTEROL HFA INHALER INHALATION SCH ×3 (08:15→15:54)
[2021-11-01] MEDS ORDERED: FUROSEMIDE 20 MG TAB PO SCH (09:00)
[2021-11-01] MEDS: SERTRALINE 50 MG TAB PO SCH (09:35)
[2021-11-01] MEDS: TAMSULOSIN 0.4 MG CAP.ER.24H PO SCH (09:35)
[2021-11-01] MEDS: METOPROLOL TARTRATE 50 MG TAB PO SCH (09:35)
--- NOTE | 2021-11-01 10:54 | P.PN ---
Subjective Progress Note Date: 11/01/21 Principal diagnosis: Shortness of breath This is a 76-year-old male patient, an ex-tobacco smoker, and active marijuana smoker, with known history of COPD, was coming in with increased dyspnea, cough chest tightness and wheezing. During this current admission, the patient also tested positive for: COVID 19. He states that he has already been vaccinated for: COVID 19 and he has taken to the vaccinations including one booster. The patient was in the hospital approximately a week ago after he had a bout of syncope. This was attributed to new onset atrial fibrillation and dehydration. He was given treatment. Echo of the heart showed an ejection fraction of 40-45% without any significant valvular abnormalities. The patient was started on metoprolol 50 mg by mouth twice a day and Eliquis 5 mg by mouth twice a day and the patient was discharged. The patient comes to the above-mentioned complaint of increased dyspnea cough and congestion. No hemoptysis. No pleurisy. No DVT or pulmonary embolism. The patient had limited troponin leak and the patient was started on IV heparin. EKG showing atrial fibrillation without any acute ischemic changes. Otherwise, the white cell count of 8 with a hemoglobin of 13.4 and a platelet count of 263. PTT is therapeutic. The patient also has a proBNP level of 3960. Sodium is at 134 with a potassium level of 3.8 and c hloride of 100 with a bicarb of 25. Creatinine is 28 with a creatinine of 1.5. The chest x-ray was clear. The patient's currently on 2 L O2 nasal cannula. No fever. No chills. No altered mentation. No change in taste or smell. No other complaints. CAT scan of the chest was done during his last admission showed some mild COPD. No other acute abnormalities of been noted. Reevaluated today on 10/29/21, patient is doing better today, breathing easier, nonetheless he continues to cough and wheeze. Patient is on 4 L nasal cannula, O2 sats is 97%. His chest x-ray showed no evidence of pneumonia, however patient did have positive Covid 19 PCR. But there is no evidence of pneumonia. WBC count today is 8.1 hemoglobin is 16. Patient is on heparin with PTT of 84.5. D-dimer is 1.26, basic metabolic profile is normal BUN is 28 creatinine 1.52. LDH 445 C-reactive protein is 2 BNP is elevated at 3960 Reevaluated today on 10/30/21, patient continues to have shortness of breath, coughing and wheezing. On physical examination he has diffuse rhonchi and wheezes noted bilaterally. Basic metabolic profile is normal, renal profile is normal, PTT is 54.7. CBC is relatively normal. On 10/31/2021 patient seen in follow-up on selective care unit. He is awake and alert, in no acute distress, satting 95% on 4 L. He was given a dose of IV Lasix yesterday and has diabetes, he states he thinks his breathing has improved with the Lasix dose. He continues on high-dose IV steroids, Symbicort, and albuterol. Chest x-ray showing mild COPD, retrocardiac basilar atelectasis. Serum procalcitonin level was low at 0.10 on admission. Follow-up chest x-ray today showing no acute pulmonary process. Patient remains on heparin infusion and Coumadin has been started, today's INR is 1.1. The rest of blood work has been noted, white blood cell count is 19.1, hemoglobin is 15.0, sodium is 135, potassium is 3.8, BUN is 39, and creatinine is 1.29. Reevaluated today on 11/01/21, patient is feeling better, breathing a lot easier, patient remains on bronchodilators for COPD, is also on diuretics for acute diastolic congestive heart failure. Feeling better, breathing easier, renal profile is improving creatinine is down to 1.14. Electrolytes are normal. Leukocytosis is improving, hence I will clear the patient to be discharged home if cleared by other consultants patient is on heparin until Coumadin is therapeutic, however patient could be given Lovenox outpatient basis as a bridge until Coumadin becomes therapeutic Objective - Vital Signs Vital signs: Vital Signs Temp 97.0 F L 11/01/21 08:00 Pulse 99 11/01/21 08:00 Resp 18 11/01/21 08:00 BP 140/97 11/01/21 08:00 Pulse Ox 97 11/01/21 08:00 FiO2 Intake & Output 10/31/21 11/01/21 11/01/21 18:59 06:59 18:59 Intake Total 107.734 Balance 107.734 Intake: Intake, IV Titration 107.734 Amount Heparin Sod,Pork in 0.45% 107.734 NaCl 25,000 unit In 0.45 % NaCl 1 250ml.bag @ 12 UNITS/KG/HR 9.253 mls/hr IV .Q24H [facility] Rx#: [id number] Other: Voiding Method Toilet Toilet Urinal Urinal # Voids 1 1 1 - Exam GENERAL EXAM: Revealed a 76-year-old white male in no distress. HEENT: PERRLA, EOMI, anicteric, no neck masses no JVD. CHEST: No chest wall deformity. Symmetrical expansion. LUNGS: Scattered rhonchi and some wheezing on forced expiratory maneuver CVS: Irregular rate and rhythm, normal S1 and S2, no gallops, no murmurs, no rubs ABDOMEN: Soft, nontender. No hepatosplenomegaly, normal bowel sounds, no guarding or rigidity. EXTREMITIES: No clubbing, no edema, no cyanosis, 2+ pulses and upper and lower extremities. MUSCULOSKELETAL: Muscle strength and tone normal. SPINE: No scoliosis or deformity SKIN: No rashes CENTRAL NERVOUS SYSTEM: Alert and oriented 3 no Focal deficits insight. - Labs CBC & Chem 7: 11/01/21 06:09 11/01/21 06:09 Labs: Abnormal Lab Results - Last 24 Hours (Table) 10/31/21 11/01/21 11/01/21 Range/Units 20:47 06:08 06:09 WBC (3.8-10.6) k/uL Neutrophils # (1.3-7.7) k/uL Lymphocytes # (1.0-4.8) k/uL PT 15.5 H (9.0-12.0) sec INR 1.5 H (<1.2) APTT 74.5 H 90.3 H (22.0-30.0) sec Sodium (137-145) mmol/L Carbon Dioxide (22-30) mmol/L BUN (9-20) mg/dL Glucose (74-99) mg/dL POC Glucose (mg/dL) 149 H (70-110) mg/dL Calcium (8.4-10.2) mg/dL 11/01/21 11/01/21 Range/Units 06:09 06:09 WBC 15.8 H (3.8-10.6) k/uL Neutrophils # 14.6 H (1.3-7.7) k/uL Lymphocytes # 0.5 L (1.0-4.8) k/uL PT (9.0-12.0) sec INR (<1.2) APTT (22.0-30.0) sec Sodium 134 L (137-145) mmol/L Carbon Dioxide 31 H (22-30) mmol/L BUN 37 H (9-20) mg/dL Glucose 147 H (74-99) mg/dL POC Glucose (mg/dL) (70-110) mg/dL Calcium 8.3 L (8.4-10.2) mg/dL Assessment and Plan Assessment: Impression: Acute hypoxic respiratory failure secondary to acute exacerbation of COPD, no evidence of infiltrates on chest x-ray. Acute COVID-19 infection, patient is vaccinated 3 Chronic atrial fibrillation Troponin leak. 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 Recommendation: C agree with discharge planning continue COVID-19 cocktail. Continue bronchodilators and taper prednisone over the next 2 weeks. Continue diuretics Continue Coumadin and dose to be adjusted accordingly. Consider Lovenox as a bridge until Coumadin becomes therapeutic will clear for discharge planning if cleared by other consult Time with Patient: Less than 30
[2021-11-01] MEDS ORDERED: predniSONE 10 MG TAB PO SCH (11:00)
--- NOTE | 2021-11-01 11:26 | P.PN ---
Subjective This is a 76-year-old male with a past medical history significant for paroxysmal atrial fibrillation recently diagnosed, COPD, diverticulitis, marij uana use and former nicotine dependence. Patient does not follow with a beta tester. We have been asked to see the patient in consultation for elevated troponin. Patient presents to the ER with increased dyspnea, cough chest tightness and wheezing. Patient found to be Covid-19 positive. The patient was recently admitted 1 week ago for syncope, this was found to be secondary to new onset atrial fibrillation and dehydration Echo revealed ejection fraction of 40-45% with global hypokinesis. The patient was started on metoprolol 50 mg BID and Eliquis 5 mg BID. Echocardiogram- limited study LV size and systolic function appears to be well- preserved. Poor visualization of cardiac structures overall. 11/01/2021 Patient seen and examined at bedside, distress. He continues to have shortness of breath, but improved on admission. He continues to have cough, non-produ ctive. He denies any chills. This has remained afebrile. He denies any chest pain or palpitations. He continues to be in atrial fibrillation with controlled ventricular rates. Meds: IV heparin, Coumadin 7.5mg given yesterday, metoprolol tartrate 50 mg twice a day, PO Lasix 20mg daily Labs: WBC 15.8, Hgb 14.8, Plt 222, INR 1.5, sodium 134, potassium 3.7, BUN 37, serum creatinine 1.1 Blood pressure 140/97, heart rate 99, afebrile, oxygen saturation 97% on 4 L nasal cannula GENERAL: In no acute distress. NECK: Supple without JVD LUNGS: Breath sounds rhonchi bilaterally to auscultation bilaterally. Respiration equal and unlabored. No wheezes, rales or rhonchi. HEART: Irregular rate and rhythm. No rubs or gallops. S1 and S2 heard. EXTREMITIES: Normal range of motion, no edema. No clubbing or cyanosis. Peripheral pulses intact. 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 EF 40-45% COPD Diverticulitis Former nicotine dependence History of tonsilar cancer PLAN From a cardiology perspective, patient is stable. Continue metoprolol tartrate 50mg BID Checked Xarelto and Eliquis coverage for patient, due to deductible medication will be around $400 copay. Coumadin started, will give 5mg Daily Daily PT/INR Consider bridging to coumadin with Lovenox Ok to discharge when cleared by primary and other consultants Patient states he has an appointment in November with a beta tester closer to home in [facility] or will follow in [place] based on his preference Nurse Practitioner note has been reviewed, I agree with a documented findings and plan of care. Patient was seen and examined. Objective - Vital Signs Vital signs: Vital Signs Temp 97.0 F L 11/01/21 08:00 Pulse 99 11/01/21 08:00 Resp 18 11/01/21 08:00 BP 140/97 11/01/21 08:00 Pulse Ox 97 11/01/21 08:00 FiO2 Intake & Output 10/31/21 11/01/21 11/01/21 18:59 06:59 18:59 Intake Total 107.734 Balance 107.734 Intake: Intake, IV Titration 107.734 Amount Heparin Sod,Pork in 0.45% 107.734 NaCl 25,000 unit In 0.45 % NaCl 1 250ml.bag @ 12 UNITS/KG/HR 9.253 mls/hr IV .Q24H [facility] Rx#: [id number] Other: Voiding Method Toilet Toilet Toilet Urinal Urinal Urinal # Voids 1 1 1 - Labs CBC & Chem 7: 11/01/21 06:09 11/01/21 06:09 Labs: Abnormal Lab Results - Last 24 Hours (Table) 10/31/21 11/01/21 11/01/21 Range/Units 20:47 06:08 06:09 WBC (3.8-10.6) k/uL Neutrophils # (1.3-7.7) k/uL Lymphocytes # (1.0-4.8) k/uL PT 15.5 H (9.0-12.0) sec INR 1.5 H (<1.2) APTT 74.5 H 90.3 H (22.0-30.0) sec Sodium (137-145) mmol/L Carbon Dioxide (22-30) mmol/L BUN (9-20) mg/dL Glucose (74-99) mg/dL POC Glucose (mg/dL) 149 H (70-110) mg/dL Calcium (8.4-10.2) mg/dL 11/01/21 11/01/21 Range/Units 06:09 06:09 WBC 15.8 H (3.8-10.6) k/uL Neutrophils # 14.6 H (1.3-7.7) k/uL Lymphocytes # 0.5 L (1.0-4.8) k/uL PT (9.0-12.0) sec INR (<1.2) APTT (22.0-30.0) sec Sodium 134 L (137-145) mmol/L Carbon Dioxide 31 H (22-30) mmol/L BUN 37 H (9-20) mg/dL Glucose 147 H (74-99) mg/dL POC Glucose (mg/dL) (70-110) mg/dL Calcium 8.3 L (8.4-10.2) mg/dL
[2021-11-01 11:44] LABS: Glucose,Whole Blood 144 mg/dL (70-110)
[2021-11-01 12:10] VITALS: BP 143/90; PULSE 95; TEMP 96.6
[2021-11-01 13:50] VITALS: RESP 18
[2021-11-01] MEDS: ACETAMINOPHEN TAB 325 MG TAB PO PRN (16:24)
[2021-11-01] MEDS ORDERED: WARFARIN 5 MG TAB PO ONE (18:00)
--- NOTE | 2021-11-03 01:23 | P.DS ---
Providers Date of admission: 10/28/21 06:05 Expected date of discharge: 11/01/21 Attending physician: Melissa Bradley Consults: 10/28/21 06:04 Consult Physician Routine Consulting Provider: Rebekah Merritt Consult Reason/Comments: Covid infection Do you want consulting provider notified?: Yes Consult Physician Routine Consulting Provider: Dago De La Cruz Consult Reason/Comments: NSTEMI Do you want consulting provider notified?: Yes Primary care physician: Sarita Hernandez MD Hospital Course: Final Diagnosis -Acute hypoxic respiratory failure; likely related to COPD exacerbation -COVID-19 infection -Acute exacerbation COPD -Chronic atrial fibrillation; remains rate controlled and is anticoagulated with Coumadin -Elevated troponin; likely troponin leak due to acute respiratory failure -CAD/chronic systolic CHF; patient has an ejection fraction of 40-45% -Acute renal injury -DVT prophylaxis; coumadin -full code Discharge disposition Patient is being discharged in a stable condition with guarded prognosis to home. Patient will follow-up with Dr. Hernandez in the outpatient setting upon discharge. Patient is to have outpatient follow up with pulmonary and ca rdiology. Prednisone taper on discharge. Total time taken is greater than 35 minutes. Hospital course This is a 76-year-old male who was recently admitted with shortness of breath and weakness. Patient was found to be covid 19 positive and maintained on oxygen . Patient also with recent admission for new onset afib and COPD and CHF exacerbation. Patient will continue on oral prednisone, lasix, and supplements on discharge. Patient continues to smoke marijuana and encouraged the patient to quit. Patient will have 02 on discharge. Being transitioned coumadin with lovenox bridging and recommend outpatient labs with scripts provided. Currently no reports of chest pain, shortness of breath, or palpitations. Patient is afebrile. No reports of nausea or vomiting and patient is tolerating diet. Patient will be discharged home today. guarded prognosis. Physical exam: Gen: This is a 76 year old male who is awake, alert and oriented x3. HEENT: Head is atraumatic, normocephalic. Pupils equal, round. Sclerae is anicteric. NECK: Supple. No JVD. No lymphadenopathy. No thyromegaly. LUNGS: diminished breath sounds bilaterally with scattered rhonchi and some mild wheezing noted. No intercostal retractions HEART: Regular rate and rhythm. No murmur. ABDOMEN: Soft. obese. Bowel sounds are present. No masses. No tenderness. EXTREMITIES: No pedal edema. No calf tenderness. NEUROLOGICAL: Patient is awake, alert and oriented x3. Cranial nerves 2 through 12 are grossly intact. Please refer to medication reconciliation sheet for a list of medications. The impression and plan of care has been dictated by Charline Moser, Nurse Practitioner as directed. Dr. Ted MD I have performed a history and examination and MDM of this patient, discussed the same with the dictator, and agree with the dictator's assessment and plan as written ,documented as a scribe. Based on total visit time, I have performed more than 50% of the visit. Patient Condition at Discharge: Fair Plan - Discharge Summary Discharge Rx Participant: Yes New Discharge Prescriptions: New Enoxaparin [Lovenox] 80 mg SQ DAILY 7 Days #7 each Acetaminophen Tab [Tylenol] 650 mg PO Q6HR PRN tab PRN Reason: Mild Pain Or Fever > 100.5 Warfarin [Coumadin] 5 mg PO DAILY 30 Days #30 tab predniSONE 10 mg PO DIRECTED #24 tab Continue Tamsulosin HCl [Flomax] 0.4 mg PO DAILY Sertraline [Zoloft] 50 mg PO DAILY Metoprolol Tartrate [Lopressor] 50 mg PO BID #60 tab Albuterol Inhaler [Ventolin Hfa Inhaler] 1 puff INHALATION RT-QID 30 Days #8 gm Changed Furosemide [Lasix] 20 mg PO DAILY #30 tab Discharge Medication List Tamsulosin HCl [Flomax] 0.4 mg PO DAILY 11/13/16 [History] Sertraline [Zoloft] 50 mg PO DAILY 12/24/16 [History] Metoprolol Tartrate [Lopressor] 50 mg PO BID #60 tab 10/22/21 [Rx] Albuterol Inhaler [Ventolin Hfa Inhaler] 1 puff INHALATION RT-QID 30 Days #8 gm 10/23/21 [Rx] Acetaminophen Tab [Tylenol] 650 mg PO Q6HR PRN tab 11/01/21 [Rx] Enoxaparin [Lovenox] 80 mg SQ DAILY 7 Days #7 each 11/01/21 [Rx] Furosemide [Lasix] 20 mg PO DAILY #30 tab 07/28/22 [Rx] Warfarin [Coumadin] 5 mg PO DAILY 30 Days #30 tab 11/01/21 [Rx] predniSONE 10 mg PO DIRECTED #24 tab 11/01/21 [Rx] Follow up Appointment(s)/Referral(s): Jimym Mondragon MD [STAFF PHYSICIAN] - 11/03/21 9:30 am Richard Green MD [STAFF PHYSICIAN] - 2 Weeks (office will call with an appt.) Sarita Hernandez MD [Primary Care Provider] - 1-2 days Ambulatory/Diagnostic Orders: Basic Metabolic Panel [LAB.AMB] Time Frame: 1 Day, Location: None Selected Patient Instructions/Handouts: Warfarin (By mouth), A-fib (Atrial Fibrillation) (GEN), COVID-19 (Coronavirus Disease 2019) (DC) Activity/Diet/Wound Care/Special Instructions: Activity is limited until follow-up Follow-up with pulmonary outpatient Follow-up cardiology outpatient Follow-up primary care provider on discharge Continue with incentive spirometer use at least 10 times every hour while awake Continue prednisone taper Continue oxygen supplementation at 4 L to manage COPD/CHF Avoid all smoking of any kind Continue with Lovenox injections as directed and continue taking Coumadin 5 mg daily Lovenox cost is $106.03 Recommend repeat labs to monitor PT/INR for Coumadin therapy in 1-2 days Discharge Disposition: HOME SELF-CARE
== END 2021-11-01 17:47 | disposition home or self-care (01) | DRG 177 ==
LOC: EC 23:43 → 3SCARD 10-28 06:05
PROVIDERS: ADMIT Internal Medicine; ATTEND Internal Medicine
PROC: 3E0F7SF Introduction of Other Gas into Respiratory Tract, Via Natural or Artificial Opening (ICD-10-PCS; principal; 2021-10-28)
DX: U07.1 COVID-19 (principal); I50.43 Acute on chronic combined systolic (congestive) and diastolic (congestive) heart failure; J96.01 Acute respiratory failure with hypoxia; J44.1 Chronic obstructive pulmonary disease with (acute) exacerbation; N17.9 Acute kidney failure, unspecified; J98.11 Atelectasis; I48.19 Other persistent atrial fibrillation; I42.8 Other cardiomyopathies; K57.92 Diverticulitis of intestine, part unspecified, without perforation or abscess without bleeding; I31.3 Pericardial effusion (noninflammatory); I95.9 Hypotension, unspecified; R79.89 Other specified abnormal findings of blood chemistry; I11.0 Hypertensive heart disease with heart failure; E11.9 Type 2 diabetes mellitus without complications; E86.0 Dehydration; I49.3 Ventricular premature depolarization; I25.5 Ischemic cardiomyopathy; I48.0 Paroxysmal atrial fibrillation; I25.10 Atherosclerotic heart disease of native coronary artery without angina pectoris; N40.0 Benign prostatic hyperplasia without lower urinary tract symptoms; M19.90 Unspecified osteoarthritis, unspecified site; F41.9 Anxiety disorder, unspecified; Z79.899 Other long term (current) drug therapy; Z79.01 Long term (current) use of anticoagulants; Z85.46 Personal history of malignant neoplasm of prostate; Z85.818 Personal history of malignant neoplasm of other sites of lip, oral cavity, and pharynx; Z87.19 Personal history of other diseases of the digestive system; Z87.891 Personal history of nicotine dependence; Z92.3 Personal history of irradiation; Z92.21 Personal history of antineoplastic chemotherapy; Z80.3 Family history of malignant neoplasm of breast
CPT/HCPCS: 36415; 71045; 71046; 80048; 80053; 83615; 83735; 83880; 84145; 84484; 85025; 85379; 85610; 85730; 86140; 87635; 93005; 93308; 94640; 94760; 96365; 96366; 99285

== ENCOUNTER → 2024-06-04 | Outpatient (CLI) | payer MEDICARE, BC ==
--- NOTE | 2024-06-04 15:37 | US ---
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 FINDINGS: GLAND SIZE: Right Lobe: 4.6x2.5x2.3 cm Overall Parenchyma: heterogeneous Left Lobe: 3.2x1.2x1.5 cm Overall Parenchyma: heterogeneous Isthmus Thickness: 0.4 cm NODULES RIGHT: # of nodules measured on right: 1 1. 2.5 X 2.0 x 2.1 cm, upper mid, solid or almost completely solid, hyperechoic nodule, which is wi margarita than tall, with smooth margins, without echogenic foci. TR4 Prior size: can be seen on 08/20/16 CT LEFT: # of nodules measured on left: 0 ISTHMUS: # of nodules measured in the isthmus: 0 Bilateral neck scanned, no evidence of lymphadenopathy. IMPRESSION: Moderately suspicious nodule right lobe thyroid. Fine-needle aspiration recommended. 2017 ACR TI-RADS LEVEL: TI-RADS 4 - Moderately Suspicious: Follow if > 1 cm, FNA if > 1.5 cm *Highest TI-RADS level nodule reported [email or web address] [facility], , 06/04/2024 3:35 PM
== END | disposition home or self-care (01) ==
LOC: RADUSWWP 11:01
PROVIDERS: ATTEND Internal Medicine
DX: E04.1 Nontoxic single thyroid nodule (principal)
CPT/HCPCS: 76536

== ENCOUNTER → 2024-07-16 | Outpatient (CLI) | payer MEDICARE, BC ==
[2024-07-16 13:52] LABS: INR 1.6 (<1.2); Prothrombin Time 16.1 sec (10.0-12.5)
== END | disposition home or self-care (01) ==
LOC: LABWHC1 12:10
PROVIDERS: ATTEND Internal Medicine
DX: Z51.81 Encounter for therapeutic drug level monitoring (principal); Z79.01 Long term (current) use of anticoagulants
CPT/HCPCS: 36415; 85610

== ENCOUNTER → 2024-07-21 | Outpatient (CLI) | payer MEDICARE, BC ==
--- NOTE | 2024-07-21 20:35 | MR ---
CLINICAL INDICATION: I48.91, I63.9 COMPARISON: CT brain 12/24/2016 TECHNIQUE: MR angiography of the head was performed utilizing 3-D noncontrast time of flight images. 3-D reformatted MIP images were generated on a separate workstation for review. Vascular assessment was performed utilizing NASCET criteria. FINDINGS: Vertebral arteries: The vertebral arteries are patent. The left vertebral artery is dominant. Basilar artery: The basilar artery is intact. The basilar artery bifurcation is normal. Internal Carotid arteries: The cervical, petrous, cavernous and supraclinoid segments are normal. DANIELA: Patent with no evidence of aneurysm. Hypoplastic right A1 segment. The right A2 DANIELA segment is p rimarily supplied by the left A1 segment. This is an anatomic variant. ACOM: Present without evidence of aneurysm. MCA: Patent with no evidence of aneurysm. DRY HOUSE TENDER: Patent with no evidence of aneurysm. PCOM: Patent with no evidence of aneurysm. IMPRESSION: No evidence for focal stenosis, occlusion or aneurysm. [facility], , 07/21/2024 8:33 PM
== END | disposition home or self-care (01) ==
LOC: RADMRIMAIN 19:45
PROVIDERS: ATTEND Internal Medicine
DX: I63.9 Cerebral infarction, unspecified (principal); I48.91 Unspecified atrial fibrillation
CPT/HCPCS: 70544

== ENCOUNTER 2024-07-27 08:18 | Day surgery (SDC) | payer MEDICARE, BC ==
[2024-07-27 09:02] LABS: Platelet Count 290 10*3/uL (140-440)
[2024-07-27 09:09] LABS: Prothrombin Time 11.3 sec (10.0-12.5)
[2024-07-27] MEDS: ALPRAZolam 0.25 MG TAB PO STA (09:12)
[2024-07-27 10:57] VITALS: RESP 18; TEMP 98.5
[2024-07-27 10:58] VITALS: PULSE 100
[2024-07-27 10:59] VITALS: BP 124/75
--- NOTE | 2024-07-27 11:56 | US ---
EXAMINATION TYPE: US FNA thyroid first lesion DATE OF EXAM: 07/27/2024 10:20 AM COMPARISON: CLINICAL INDICATION:Male, 79 years old with history of E04.1 NONTOXIC SINGLE THYROID NODULE; , PROCEDURE: Informed consent was obtained. The risks and benefits of the procedure were discussed with the patien t. The site was marked. Timeout procedure was performed Ultrasound imaging demonstrates solid nodule mid to lower pole right thyroid lobe The patient was prepped, draped in the usual sterile fashion, and locally anesthetized with 1% lidoca ine. Five fine needle aspiration were then performed with a 25 gauge needle. Samples were sent to [facility] pathology department for further analysis. Patient tolerated the procedure without incident and wa s sent home in stable condition. IMPRESSION: Successful ultrasound guided fine needle aspiration [facility], , 07/27/2024 11:53 AM
== END 2024-07-27 10:45 | disposition home or self-care (01) ==
LOC: RADPROMAIN 08:18
PROVIDERS: ATTEND Internal Medicine
DX: E04.1 Nontoxic single thyroid nodule (principal)
CPT/HCPCS: 10005; 36415; 85049; 85610; 88173; 88305

== ENCOUNTER → 2024-09-10 | Outpatient (CLI) | payer MEDICARE, BC ==
--- NOTE | 2024-09-11 09:24 | MR ---
EXAMINATION TYPE: MR brain wo/w con DATE OF EXAM: 09/10/2024 2:25 PM COMPARISON: 07/21/2024. CLINICAL INDICATION: Male, 79 years old with history of I63.9 CEREBRAL INFARCTION, UNSPECIFIED; PHH, CVA. TECHNIQUE: Multi planar, multi sequence imaging was performed through the brain including: T1, T2, In version recovery, susceptibility weighted imaging and gradient echo imaging and Diffusion weighted im aging. The patient was then given intravenous contrast and multi planar, T1 fat-saturation images wer e obtained. IV Contrast: 8 mL Gadobutrol FINDINGS: Mild cerebral atrophy with proportional dilation of ventricular system. Diffusion-weighted imaging s hows no evidence of restricted diffusion to suggest acute/subacute infarct. Intracranial arterial raz w voids are maintained. Midline structures show no abnormality. Remote right parietal lobe injury carito ntified: Scoliosis film with encephalomalacia extending to the cortex Scattered foci of high T2 signa l intensity are seen within the periventricular white matter. The susceptibility weighted images do n ot reveal any evidence for micro-hemorrhage. After administration of gadolinium, no abnormal enhancem ent is seen. Atrophic A1 segment on the right. The right A2 segment is primarily supplied by the left A1 segment. The bone marrow signal is within normal limits. Paranasal sinuses and mastoid air cells: No significant paranasal sinus disease. Visualized orbits: Orbital contents are intact. IMPRESSION: 1. No evidence of intracranial mass, acute/subacute infarct, or abnormal enhancement. 2. Nonspecific white matter changes, likely related to small vessel ischemic disease. 3. Remote right parietal lobe injury. [facility], , 09/11/2024 9:21 AM
== END | disposition home or self-care (01) ==
LOC: RADMRIMAIN 13:30
PROVIDERS: ATTEND Internal Medicine
DX: I63.9 Cerebral infarction, unspecified (principal); R90.82 White matter disease, unspecified
CPT/HCPCS: 70553; A9585

== ENCOUNTER → 2024-09-14 | Outpatient (CLI) | payer MEDICARE, BC ==
[2024-09-14 15:08] LABS: INR 1.3 (<1.2); Prothrombin Time 14.2 sec (10.0-12.5)
== END | disposition home or self-care (01) ==
LOC: LABWHC1 13:45
PROVIDERS: ATTEND Internal Medicine
DX: I48.91 Unspecified atrial fibrillation (principal)
CPT/HCPCS: 36415; 85610

== ENCOUNTER 2024-09-15 11:59 | Inpatient (IN) | payer MEDICARE, BC ==
[2024-09-15] MEDS: METOCLOPRAMIDE 5 MG/ML 2 ML VIAL IVP STA (13:11)
[2024-09-15] MEDS: SODIUM CHLORIDE 0.9% 500 ML 500 ML IV ONE (13:12)
[2024-09-15 13:14] LABS: Basophils # (A) 0.08 10*3/uL (0.00-0.10); Basophils % (A) 0.5 %; Eosinophils # (A) 0.04 10*3/uL (0.04-0.35); Eosinophils % (A) 0.2 %; HCT 46.1 % (39.6-50.0); HGB 15.7 g/dL (13.0-17.0); Lymphocytes # (A) 0.89 10*3/uL (0.90-5.00); Lymphocytes % (A) 5.3 %; MCH 31.7 pg (27.0-32.0); MCHC 34.1 g/dL (32.0-37.0); MCV 93.1 fL (80.0-97.0); Mean Platelet Volume 10.3 fL (9.5-12.2); Monocytes # (A) 0.85 10*3/uL (0.20-1.00); Neutrophils # (A) 14.96 10*3/uL (1.80-7.70); Neutrophils % (A) 88.5 %; Platelet Count 215 10*3/uL (140-440); RBC 4.95 10*6/uL (4.40-5.60); RDW 14.5 % (11.5-14.5)
[2024-09-15] MEDS: SODIUM CHLORIDE 0.9% 1,000 ML IV STA (13:25)
[2024-09-15 13:34] LABS: ALT 32 U/L (4-49); AST 25 U/L (17-59); African American GFR (CKD) 82 (>60 ml/min/1.73 sqM); Albumin 3.8 g/dL (3.5-5.0); Alkaline Phosphatase 108 U/L (38-126); Anion Gap 7 mmol/L; Blood Urea Nitrogen 26 mg/dL (9-20); Calcium 8.7 mg/dL (8.4-10.2); Carbon Dioxide 26 mmol/L (22-30); Chloride 104 mmol/L (98-107); Glucose 210 mg/dL (74-99); Lipase 272 U/L (23-300); Magnesium 1.9 mg/dL (1.6-2.3); Non-African American GFR(CKD) 71 (>60 ml/min/1.73 sqM); Potassium 4.3 mmol/L (3.5-5.1); Sodium 137 mmol/L (137-145); Total Protein 6.6 g/dL (6.3-8.2)
[2024-09-15 13:38] LABS: INR 1.5 (<1.2); Prothrombin Time 15.4 sec (10.0-12.5)
[2024-09-15 13:42] LABS: NT-Pro-B-Type Natriuretic Pept 2510 pg/mL
--- NOTE | 2024-09-15 13:51 | CT ---
EXAMINATION TYPE: CT brain wo con DATE OF EXAM: 09/15/2024 COMPARISON: 12/24/2016 CLINICAL INDICATION: Male, 79 years old with history of rose, ams; PHH, AMS AND HEADACHE CT DLP: 1245.4 mGycm Automated exposure control for dose reduction was used. Findings: The ventricles, basal cisterns and sulci over the convexities are mildly enlarged. There is moderate decreased density in the periventricular white matter consistent with chronic ischemic white matter d emyelination. There is no mass effect or shift of the midline structures. There is no acute intra or extra-axial hemorrhage. The posterior fossa including the brainstem, fourth ventricle and cerebellar pontine angles appear no rmal. Intraorbital contents appear normal and symmetric. Visualized paranasal sinuses and mastoid air cells are well aerated. The calvarium is intact. IMPRESSION: 1. No acute bleed or mass effect. 2. Senescent atrophy and ischemic white matter changes as described above. [facility], , 09/15/2024 1:48 PM
--- NOTE | 2024-09-15 14:08 | XR ---
EXAMINATION TYPE: XR chest 2V DATE OF EXAM: 09/15/2024 1:42 PM COMPARISON: Chest radiographs from 05/19/2024 CLINICAL INDICATION: Male, 79 years old with history of SOB; PHH TECHNIQUE: XR chest 2V Frontal and lateral views of the chest. FINDINGS: Lungs/Pleura: There is no evidence of pleural effusion, focal consolidation, or pneumothorax. Pulmonary vascularity: Unremarkable. Heart/mediastinum: Cardiomediastinal silhouette is prominent in size. Atherosclerotic calcifications are seen in the aorta. Musculoskeletal: No acute osseous pathology. Other findings: None IMPRESSION: Cardiomegaly and mild pulmonary vascular congestion. Correlate with BNP for congestive heart failure. [facility], , 09/15/2024 2:06 PM
[2024-09-15] MEDS: ONDANSETRON 4 MG/2 ML VIAL IVP STA (14:36)
[2024-09-15] MEDS: FUROSEMIDE 10 MG/ML 4 ML VIAL IV STA (14:36)
[2024-09-15] MEDS: LABETALOL 5 MG/ML VIAL MDV IVP STA (14:36)
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
[2024-09-15] MEDS: FUROSEMIDE 10 MG/ML 4 ML VIAL IV SCH ×2 (15:24→19:50)
[2024-09-15 15:34] LABS: Appearance,Urine Clear (Clear); Bilirubin,Urine Negative (Negative); Blood,Urine Negative (Negative); Color,Urine Colorless; Glucose,Urine (UA) 1+ (Negative); Ketones,Urine Negative (Negative); Leukocyte Esterase,Urine Negative (Negative); Nitrite,Urine Negative (Negative); PH, Urine 6.5 (5.0-8.0); Protein,Urine Negative (Negative); Specific Gravity,Urine 1.005 (1.001-1.035); Urobilinogen,Urine <2.0 mg/dL (<2.0)
[2024-09-15] MEDS: PIPERACILLIN-TAZOBACTAM 3.375 GM in SODIUM CHLORIDE 0.9% 100 ML IVPB STA (16:26)
[2024-09-15] MEDS ORDERED: IPRATROPIUM-ALBUTEROL 3 ML NEB INHALATION PRN (16:40)
[2024-09-15] MEDS ORDERED: DEXTROSE 50% SYRINGE 50 ML IVP PRN ×2 (16:41)
[2024-09-15] MEDS ORDERED: IOPAMIDOL CONTRAST (ORAL USE) VIAL PO PRN (16:42)
[2024-09-15] MEDS ORDERED: PANTOPRAZOLE 40 MG/10 ML VIAL IVP SCH (16:45)
[2024-09-15] MEDS: HEPARIN SODIUM 1,000 UN/ML (10ML VL) IV ONE ×2 (16:53→17:47)
[2024-09-15] MEDS: DILTIAZEM 5 MG/ML 5 ML VIAL IVP STA (17:01)
[2024-09-15] MEDS: ASPIRIN 81 MG PO SCH (17:02)
[2024-09-15] MEDS: methylPREDNISolone SOD SUCCI 125 MG/2 ML VIAL IV SCH (17:03)
[2024-09-15 17:05] LABS: Glucose,Whole Blood 210 mg/dL (70-110)
[2024-09-15] MEDS: HEPARIN SOD,PORK IN 0.45% NACL 25,000 UNIT in 0.45% NACL 1 250ML.BAG IV SCH (17:48)
[2024-09-15] MEDS: INSULIN LISPRO (HumaLOG) 100 UNIT/ML 10 mL VL SQ SCH (17:50)
[2024-09-15] MEDS: DILTIAZEM 125 MG in DEXTROSE 5% IN WATER 100 ML IV SCH (17:55)
[2024-09-15] MEDS: ONDANSETRON 4 MG/2 ML VIAL IVP PRN (18:41)
[2024-09-15] MEDS: IPRATROPIUM-ALBUTEROL 3 ML NEB INHALATION SCH (19:53)
[2024-09-15] MEDS: FORMOTEROL FUMARATE 20 MCG/2 ML NEBU INHALATION SCH (19:53)
[2024-09-15] MEDS: BUDESONIDE 1 MG/2 ML NEBU INHALATION SCH (19:53)
--- NOTE | 2024-09-15 20:32 | CT ---
EXAMINATION TYPE: CT angio head neck CT DLP: 537.1 mGycm, Automated exposure control for dose reduction was used. DATE OF EXAM: 09/15/2024 7:39 PM COMPARISON: CT head from the same day. Thyroid ultrasound 07/27/2024. CLINICAL INDICATION:Male, 79 years old with history of dizziness; PHH, dizziness TECHNIQUE: Axially acquired helical CT angiogram of the head and neck was obtained with contrast. Axi al images are supplemented with 3D reconstructions and MIP images which were post-processed at an in dependent workstation. NASCET criteria used. Contrast used:65ml mL of Isovue 370 with IV Contrast, Oral contrast used: None. FINDINGS: CTA HEAD: Please see CT head noncontrasted study from the same day for further intracranial details.. The visualized portions of the internal carotid arteries, middle cerebral arteries, anterior cerebral arteries, and posterior cerebral arteries are patent. The right A1 segment is hypoplastic. There is slight tortuosity of the left M1 branch of the MCA. The basilar and vertebral arteries are patent. CTA NECK: Right Carotid System: The common carotid artery and external carotid artery are patent. Minimal atherosclerotic calcificati ons are seen at the bifurcation. The carotid bifurcation demonstrates no evidence of hemodynamically significant stenosis. The remaining portions of the internal carotid artery demonstrate normal size w ithout significant narrowing. Left Carotid System: The common carotid artery and external carotid artery are patent. Moderate atherosclerotic calcificat ions are seen at the carotid bifurcation which demonstrates no evidence of hemodynamically significan t stenosis. The remaining portions of the internal carotid artery demonstrate normal size without sig nificant narrowing. Vertebral arteries are patent without evidence hemodynamically significant stenosis. There is a three-vessel aortic arch. The origins of the great vessels are patent. No evidence of hemo dynamically significant stenosis. Upper thorax: Hypodense nodule is seen within the right thyroid lobe measuring up to 2.2 cm. Motion artifact in the lungs limits evaluation. IMPRESSION: 1. No evidence of dissection of the cervical internal carotid arteries or vertebral arteries or any e vidence of significant stenosis at the carotid bifurcations. 2. No evidence of intracranial high-grade stenosis or intracranial aneurysm. 3. Hypodense nodule in the right thyroid lobe measuring up to 2.2 cm. Correlate with thyroid ultrasou nd in reference. [facility], , 09/15/2024 8:30 PM
--- NOTE | 2024-09-15 20:38 | CT ---
EXAMINATION TYPE: CT abdomen pelvis wo con CT DLP: 721.5 mGycm, Automated exposure control for dose reduction was used. DATE OF EXAM: 09/15/2024 7:32 PM COMPARISON: CT chest 10/22/2021 CLINICAL INDICATION:Male, 79 years old with history of vomiting, bowel obstruction; VOMITING, BOWEL O BSTRUCTION TECHNIQUE: Axial CT abdomen pelvis wo con;Sagittal and coronal reformats were created on a separate workstation. Contrast used: mL of , (none if empty) Oral contrast used: with Oral Contrast (none if empty) FINDINGS: LOWER CHEST: Patchy groundglass changes are seen in the bilateral lower lobes. Bibasilar atelectasis present. ABDOMEN LIVER: Unremarkable GALLBLADDER AND BILE DUCTS: The gallbladder is nondistended with no gross abnormality. No biliary kemi jason dilatation. PANCREAS: Atrophic. SPLEEN: Atrophic with scattered calcifications. ADRENAL GLANDS: Unremarkable. KIDNEYS AND URETERS: No evidence of hydronephrosis or renal calculus. The ureters are unremarkable. PELVIS BLADDER: Unremarkable REPRODUCTIVE: Prostate is not enlarged. Small calcification noted. ABDOMEN & PELVIS STOMACH AND BOWEL: Small hiatal hernia. Small bowel is of normal caliber. Scattered colonic diverticu la are seen. There is subtle fat stranding seen in the left lower quadrant of the abdomen. No pneumat osis or pericolonic fluid collections. No evidence of bowel obstruction. PERITONEUM/RETROPERITONEUM: No evidence of pneumoperitoneum or free fluid. VASCULATURE: No evidence of aortic aneurysm. MUSCULOSKELETAL: No acute osseous abnormalities LYMPH NODES: No gross evidence for lymphadenopathy. SOFT TISSUE/ABDOMINAL WALL: Unremarkable IMPRESSION: 1. Scattered distal colonic diverticulosis is subtle surrounding fat stranding may represent a mild uncomplicated diverticulitis. Correlate clinically evaluation. 2. Patchy groundglass changes in the bilateral lung bases may represent an acute infectious/inflammat ory process. [facility], , 09/15/2024 8:36 PM
[2024-09-15] MEDS ORDERED: HEPARIN SODIUM,PORCINE 5,000 UNIT/ML 1 ML VIAL SQ SCH (21:00)
[2024-09-15] MEDS: PANTOPRAZOLE 40 MG/10 ML VIAL IVP SCH (21:34)
[2024-09-15 22:17] LABS: Glucose,Whole Blood 199 mg/dL (70-110)
[2024-09-16] MEDS: PIPERACILLIN-TAZOBACTAM 3.375 GM in SODIUM CHLORIDE 0.9% 100 ML IVPB SCH (00:22)
[2024-09-16] MEDS: HEPARIN SODIUM 1,000 UN/ML (10ML VL) IV PRN (02:31)
--- NOTE | 2024-09-16 02:59 | HP ---
HISTORY AND PHYSICAL CHIEF COMPLAINT: Nausea and vomiting as well as shortness of breath and unsteadiness in walking. HISTORY OF PRESENT ILLNESS: This is a 79-year-old man with past medical history of COPD, history of myocardial infarction, DJD, and history of tonsillar cancer, was having some nausea, vomiting, and shortness of breath also. The patient came to [facility]. The patient also complained of dizziness on walking as well as some change in mental status, also possibility of stroke is also being considered. There is no history of fever, rigor, or chills at this time. PAST MEDICAL HISTORY: History of COPD, history of myocardial infarction, and history of DJD. Rest of the history and rest of the chart is also reviewed. HOME MEDICATIONS: Reviewed, include warfarin, and dose and rest of medications reviewed, not confirmed yet. ALLERGIES: None known. FAMILY HISTORY: History of breast cancer in the family. SOCIAL HISTORY: Previous history of smoking. REVIEW OF SYSTEMS: Fourteen-point review of systems negative except as mentioned earlier. PHYSICAL EXAMINATION: VITAL SIGNS: Pulse is 124, blood pressure n, respirations 20. HEENT: Conjunctivae are normal. NECK: No JVD. CARDIOVASCULAR: S1 and S2. RESPIRATIONS: Bilateral scattered rhonchi and crackles. ABDOMEN: Soft and nontender. LEGS: No edema. No swelling. NERVOUS SYSTEM: No focal deficit. LABORATORY DATA: WBC 16.9. Otherwise, chest x-ray noted. ASSESSMENT: 1. Shortness of breath, possible chronic obstructive pulmonary disease acute exacerbation. 2. Rule out acute stroke. 3. Rule out aspiration. 4. Nausea and vomiting, possible acute gastritis. 5. Possible bronchopneumonia and tracheobronchitis. 6. Rule out congestive heart failure. 7. History of myocardial infarction. 8. History of degenerative joint disease. 9. Multiple complex medical issues. RECOMMENDATIONS AND DISCUSSION: This is a 79-year-old man, who presented with multiple complex medical issues. We will monitor the patient closely. I would recommend intensive bronchodilator treatment, steroids, and empiric antibiotics. I would also recommend a CAT scan of the abdomen and pelvis to complete the workup also, otherwise testing. Symptomatic treatment. Consult Dr. Mondragon. The patient might require an ICU admission because of multiple complex medical issues as mentioned earlier. I would also recommend Neurology consultation as well as CT angio of the neck to rule out the possibility of acute stroke. A CT brain was already done, which I reviewed personally, showed some acute atrophy and no focal changes. Further recommendations to follow. MMODL / IJN: [id number] / MTDD
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
[2024-09-16 06:01] LABS: Influenza A Not Detected (Not Detectd); Influenza B Not Detected (Not Detectd); RSV Not Detected (Not Detectd)
[2024-09-16] MEDS: ACETAMINOPHEN TAB 325 MG TAB PO PRN (06:49)
[2024-09-16 08:20] LABS: Glucose,Whole Blood 228 mg/dL (70-110)
[2024-09-16] MEDS ORDERED: FUROSEMIDE 40 MG TAB PO SCH (09:00)
[2024-09-16] MEDS: WARFARIN 3 MG TAB PO ONE (09:19)
[2024-09-16] MEDS: DILTIAZEM ORAL 30 MG TAB PO SCH (09:19)
[2024-09-16] MEDS: METOPROLOL TARTRATE 50 MG TAB PO SCH (09:21)
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
[2024-09-16 11:41] LABS: Glucose,Whole Blood 297 mg/dL (70-110)
[2024-09-16 11:53] LABS: T4, Free (Free Thyroxine) 1.95 ng/dL (0.78-2.19)
[2024-09-16 15:53] LABS: Glucose,Whole Blood 236 mg/dL (70-110)
[2024-09-16] MEDS ORDERED: SUCCINYLCHOLINE CHLORIDE 200 MG/10 ML VIAL IV ONE (15:54)
[2024-09-16] MEDS ORDERED: EPINEPHrine 10 ML SYRINGE (0.1 MG/ML) ONE (15:54)
[2024-09-16] MEDS ORDERED: MIDAZOLAM 1 MG/ML 5 ML VIAL ONE (15:54)
[2024-09-16] MEDS ORDERED: MAGNESIUM SULFATE SYG 4.06 MEQ/ML SYRINGE ONE (15:54)
--- NOTE | 2024-09-16 16:38 | ED ---
Medical Decision Making - Medical Decision Making This is a 79-year-old male who was already admitted but resided in the emergency department. A CODE BLUE was called on him because the patient stopped breathing and I arrived in the room patient was not breathing so we started bagging the patient patient did have a good pulse patient's blood pressure was in the normal range at this time. Patient remained unresponsive. We set up to intubate the patient shortly thereafter I did intubate the patient and after intubation patient's blood pressure continued to get lower and at 1 point we lost his pulse so CPR was started patient was given 1 amp of epinephrine. At which point in time patient's pulses returned CPR was halted and patient was placed on the vent. Patient's EKG showed atrial flutter about 140 beats a minute patient's blood pressure started to get lower again and patient was placed on Levophed through a peripheral IV at this point. ICU doc Dr. Mondragon was contacted and requested the patient to be put upstairs. - Lab Data Result diagrams: 09/15/24 13:10 09/15/24 13:10 Lab Results 08/15/24 09/15/24 09/15/24 Range/Units 13:10 13:10 13:10 WBC 16.90 H (4.50-10.00) 10*3/uL RBC 4.95 (4.40-5.60) 10*6/uL Hgb 15.7 (13.0-17.0) g/dL Hct 46.1 (39.6-50.0) % MCV 93.1 (80.0-97.0) fL MCH 31.7 (27.0-32.0) pg MCHC 34.1 (32.0-37.0) g/dL Plt Count 215 (140-440) 10*3/uL MPV 10.3 (9.5-12.2) fL Immature Gran % (Auto) 0.5 % Neutrophils % 88.5 % Lymphocytes % 5.3 % Monocytes % 5.0 % Eosinophils % 0.2 % Basophils % 0.5 % Immature Gran # 0.08 H (0.00-0.04) 10*3/uL Neutrophils # 14.96 H (1.80-7.70) 10*3/uL Lymphocytes # 0.89 L (0.90-5.00) 10*3/uL Monocytes # 0.85 (0.20-1.00) 10*3/uL Eosinophils # 0.04 (0.04-0.35) 10*3/uL Basophils # 0.08 (0.00-0.10) 10*3/uL PT (10.0-12.5) sec INR (<1.2) APTT (22.0-30.0) sec Sodium 137 (137-145) mmol/L Potassium 4.3 (3.5-5.1) mmol/L Chloride 104 (98-107) mmol/L Carbon Dioxide 26 (22-30) mmol/L Anion Gap 7 mmol/L BUN 26 H (9-20) mg/dL Creatinine 1.01 (0.66-1.25) mg/dL Est GFR (CKD-EPI)AfAm 82 (>60 ml/min/1.73 sqM) Est GFR (CKD-EPI)NonAf 71 (>60 ml/min/1.73 sqM) Glucose 210 H (74-99) mg/dL Calcium 8.7 (8.4-10.2) mg/dL Magnesium 1.9 (1.6-2.3) mg/dL Total Bilirubin 1.0 (0.2-1.3) mg/dL AST 25 (17-59) U/L ALT 32 (4-49) U/L Alkaline Phosphatase 108 (38-126) U/L Troponin I (0.000-0.034) ng/mL NT-Pro-B Natriuret Pep 2510 pg/mL Total Protein 6.6 (6.3-8.2) g/dL Albumin 3.8 (3.5-5.0) g/dL Lipase 272 (23-300) U/L TSH 9.970 H (0.465-4.680) mIU/L Free T4 1.95 (0.78-2.19) ng/dL Urine Color Urine Appearance (Clear) Urine pH (5.0-8.0) Ur Specific [place] (1.001-1.035) Urine Protein (Negative) Urine Glucose (UA) (Negative) Urine Ketones (Negative) Urine Blood (Negative) Urine Nitrite (Negative) Urine Bilirubin (Negative) Urine Urobilinogen (<2.0) mg/dL Ur Leukocyte Esterase (Negative) 09/15/24 09/15/24 09/15/24 Range/Units 13:10 13:10 15:22 WBC (4.50-10.00) 10*3/uL RBC (4.40-5.60) 10*6/uL Hgb (13.0-17.0) g/dL Hct (39.6-50.0) % MCV (80.0-97.0) fL MCH (27.0-32.0) pg MCHC (32.0-37.0) g/dL Plt Count (140-440) 10*3/uL MPV (9.5-12.2) fL Immature Gran % (Auto) % Neutrophils % % Lymphocytes % % Monocytes % % Eosinophils % % Basophils % % Immature Gran # (0.00-0.04) 10*3/uL Neutrophils # (1.80-7.70) 10*3/uL Lymphocytes # (0.90-5.00) 10*3/uL Monocytes # (0.20-1.00) 10*3/uL Eosinophils # (0.04-0.35) 10*3/uL Basophils # (0.00-0.10) 10*3/uL PT 15.4 H (10.0-12.5) sec INR 1.5 H (<1.2) APTT 21.0 L (22.0-30.0) sec Sodium (137-145) mmol/L Potassium (3.5-5.1) mmol/L Chloride (98-107) mmol/L Carbon Dioxide (22-30) mmol/L Anion Gap mmol/L BUN (9-20) mg/dL Creatinine (0.66-1.25) mg/dL Est GFR (CKD-EPI)AfAm (>60 ml/min/1.73 sqM) Est GFR (CKD-EPI)NonAf (>60 ml/min/1.73 sqM) Glucose (74-99) mg/dL Calcium (8.4-10.2) mg/dL Magnesium (1.6-2.3) mg/dL Total Bilirubin (0.2-1.3) mg/dL AST (17-59) U/L ALT (4-49) U/L Alkaline Phosphatase (38-126) U/L Troponin I 0.018 (0.000-0.034) ng/mL NT-Pro-B Natriuret Pep pg/mL Total Protein (6.3-8.2) g/dL Albumin (3.5-5.0) g/dL Lipase (23-300) U/L TSH (0.465-4.680) mIU/L Free T4 (0.78-2.19) ng/dL Urine Color Colorless Urine Appearance Clear (Clear) Urine pH 6.5 (5.0-8.0) Ur Specific [place] 1.005 (1.001-1.035) Urine Protein Negative (Negative) Urine Glucose (UA) 1+ H (Negative) Urine Ketones Negative (Negative) Urine Blood Negative (Negative) Urine Nitrite Negative (Negative) Urine Bilirubin Negative (Negative) Urine Urobilinogen <2.0 (<2.0) mg/dL Ur Leukocyte Esterase Negative (Negative) Disposition Clinical Impression: Atrial fibrillation with RVR, CHF exacerbation, Nausea & vomiting Disposition: ADMITTED IP TO THIS HOSP Condition: Poor Procedures - Intubation Sedative: Versed Paralytic: Succinylcholine Laryngoscope: Borja Size: 4 ET Tube Size: 8 ET Tube Uncuffed: No Tube Placement Confirmation: visualized tube passing through cords, equal breath sounds bilaterally, no breath sounds over epigastrium, confirmation by capnometry Patient Tolerated Procedure: well Intubation Complications: none
--- NOTE | 2024-09-16 16:43 | XR ---
EXAMINATION TYPE: XR chest 1V portable DATE OF EXAM: 09/16/2024 4:29 PM COMPARISON: Chest radiographs from 09/15/2024 CLINICAL INDICATION: Male, 79 years old with history of ETT placement; [facility] TECHNIQUE: XR chest 1V portable Frontal view of the chest. FINDINGS: Lungs/Pleura: There is no evidence of pleural effusion, focal consolidation, or pneumothorax. Right midlung calcification. Pulmonary vascularity: Unremarkable. Heart/mediastinum: Cardiomediastinal silhouette is unremarkable. Musculoskeletal: No acute osseous pathology. Other findings: None Lines/Tubes: Endotracheal tube with distal tip 1.2 cm above the cliff. Nasogastric tube with its distal tip and side-port projecting under the diaphragm. IMPRESSION: Pulmonary edema. [facility], , 09/16/2024 4:41 PM
[2024-09-16] MEDS: NOREPINEPHRINE 8 MG in SODIUM CHLORIDE 0.9% 250 ML IV SCH (16:45)
[2024-09-16 16:54] LABS: Glucose,Whole Blood 209 mg/dL (70-110)
[2024-09-16] MEDS ORDERED: Potassium Replacement Protocol 1 EACH MISC MISCELLANE PRN (17:11)
[2024-09-16] MEDS ORDERED: Magnesium Replacement Protocol 1 EACH MISC MISCELLANE PRN (17:11)
[2024-09-16] MEDS ORDERED: Phosphorus Replacement Protoco 1 EACH MISC MISCELLANE PRN (17:11)
[2024-09-16] MEDS ORDERED: NALOXONE 0.4 MG/ML 1 ML VIAL IV PRN (17:11)
[2024-09-16 17:13] LABS: ABG Base Excess 0.7 mmol/L; ABG HCO3 28 mmol/L (21-25); ABG Oxygen Saturation >100.0 % (94-97); ABG PCO2 51 mmHg (35-45); ABG PH 7.34 (7.35-7.45); ABG TCO2 29 mmol/L (19-24); Allen Test Performed? Yes
[2024-09-16 17:17] LABS: ABG PO2 >420 mmHg (83-108)
[2024-09-16] MEDS: VASOPRESSIN 20 UNIT in SODIUM CHLORIDE 0.9% 50 ML IV SCH (17:30)
[2024-09-16] MEDS: SODIUM CHLORIDE 0.9% 1,000 ML IV SCH (17:40)
[2024-09-16 18:26] LABS: HCT 46.1 % (39.6-50.0); HGB 16.1 g/dL (13.0-17.0); MCH 31.6 pg (27.0-32.0); MCHC 34.9 g/dL (32.0-37.0); MCV 90.6 fL (80.0-97.0); Mean Platelet Volume 10.5 fL (9.5-12.2); Platelet Count 272 10*3/uL (140-440); RBC 5.09 10*6/uL (4.40-5.60); RDW 14.7 % (11.5-14.5); WBC 28.25 10*3/uL (4.50-10.00)
[2024-09-16 19:15] LABS: ALT 27 U/L (4-49); AST 26 U/L (17-59); African American GFR (CKD) 46 (>60 ml/min/1.73 sqM); Albumin 3.9 g/dL (3.5-5.0); Alkaline Phosphatase 112 U/L (38-126); Anion Gap 11 mmol/L; Blood Urea Nitrogen 36 mg/dL (9-20); Calcium 8.7 mg/dL (8.4-10.2); Carbon Dioxide 28 mmol/L (22-30); Chloride 96 mmol/L (98-107); Glucose 273 mg/dL (74-99); Magnesium 3.8 mg/dL (1.6-2.3); Non-African American GFR(CKD) 40 (>60 ml/min/1.73 sqM); Potassium 3.5 mmol/L (3.5-5.1); Sodium 135 mmol/L (137-145); Total Bilirubin 1.1 mg/dL (0.2-1.3); Total Protein 6.6 g/dL (6.3-8.2)
[2024-09-16 20:25] VITALS: TEMP 97.6
[2024-09-16] MEDS ORDERED: CHLORHEXIDINE GLUCONATE 15 ML CUP MUCOUS MEM SCH (21:00)
[2024-09-16] MEDS ORDERED: SERTRALINE 50 MG TAB PO SCH (21:00)
[2024-09-16] MEDS ORDERED: ATORVASTATIN 20 MG TAB PO SCH (21:00)
[2024-09-16] MEDS ORDERED: TAMSULOSIN 0.4 MG CAP.ER.24H PO SCH (21:00)
[2024-09-16] MEDS ORDERED: ATROPINE OPHTH SOLN 1% 5ML BTL SUBLINGUAL PRN (21:38)
[2024-09-16] MEDS ORDERED: MORPHINE SULFATE 100 MG in SODIUM CHLORIDE 0.9% 90 ML IV SCH (21:45)
--- NOTE | 2024-09-16 21:47 | PN ---
PROGRESS NOTE DATE OF SERVICE: 09/16/2024 SUBJECTIVE: This 79-year-old gentleman admitted with multiple complex medical issues, has features of respiratory difficulties and COPD, acute exacerbation as well as CHF acute exacerbation. The patient also had bilateral pneumonia, possibility of aspiration is considered. The CT scan angio showed no evidence of any strokes at this time. Multiple consultants are following the patient closely. PAST MEDICAL HISTORY: Reviewed. REVIEW OF SYSTEMS: A 14-point review of systems negative except as mentioned earlier. PAST MEDICAL HISTORY: Reviewed. PHYSICAL EXAMINATION: VITAL SIGNS: Pulse is 106, blood pressure n, and respirations 20. HEENT: Conjunctivae normal. CARDIOVASCULAR: S1 and S2. RESPIRATIONS: Breath sounds diminished at the bases. ABDOMEN: Soft. NERVOUS SYSTEM: Nonfocal. LABORATORY DATA: Glucose noted. Otherwise, WBCs 16.9, rest of the labs are noted. Chest x-ray reviewed. ASSESSMENT: 1. Shortness of breath, possible chronic obstructive pulmonary disease, acute exacerbation as well as congestive heart failure, acute exacerbation. 2. Possible aspiration pneumonia. 3. Rule out acute stroke. 4. Nausea and vomiting, possible acute gastritis. 5. History of myocardial infarction. 6. History of degenerative joint disease. 7. Multiple complex medical issues. RECOMMENDATIONS: Recommend to continue current management and continue symptomatic treatment. Otherwise, at this time, the patient is on intensive bronchodilator treatment and small dose of Lasix. Continue to follow with Pulmonology and Cardiology. Continue with bronchodilators. Continue with steroids. Continue with the antibiotics. Neurology also has been consulted for the exclusion of the Neurology, I would recommend continue the current medications, resume the home medications, extremely guarded prognosis, further recommendations, see orders for details. MMODL / IJN: [id number] / MTDD
--- NOTE | 2024-09-16 21:47 | OP ---
OPERATIVE REPORT DATE OF SERVICE : PROCEDURE PERFORMED: Placement of a right femoral triple-lumen catheter. PREOPERATIVE DIAGNOSES: Cardiac arrest, severe hypotension requiring multiple pressors. POSTOPERATIVE DIAGNOSES: Cardiac arrest, severe hypotension requiring multiple pressors. The procedure was done in an emergency situation. PROCEDURE: The patient was placed in supine position, the area of the right groin was prepared in a sterile fashion. Drapes were applied, heparin was placed on hold 10 minutes prior, then the right groin was locally anesthetized with lidocaine, then the right femoral vein was easily cannulated, a guidewire was placed, the area around the guidewire was dilated with a dilator. Then, a triple-lumen catheter was inserted over the guidewire, and the guidewire was removed. Good blood flow noted in the 3 different ports, no complications. Line was secured using 3.0 silk suture. Aspirin will remain on hold for 1 hour and then will be restarted as to the previous dose. The patient tolerated the procedure well. MMODL / IJN: [id number] /
--- NOTE | 2024-09-16 21:51 | CT ---
EXAMINATION TYPE: CT brain wo con DATE OF EXAM: 09/16/2024 9:13 PM COMPARISON: As 09/15/2024.. CLINICAL INDICATION: Male, 79 years old with history of code blue/ no gag/pupil non reactive, code bl ue/ no gag/ pupil non-reactive TECHNIQUE: Brain: Axial CT images of the brain were obtained with coronal and sagittal reformats created and rev iewed. Contrast used: None. Oral contrast used: None. CT DLP: 1170.4 mGycm, Automated exposure control for dose reduction was used. FINDINGS: Brain: Extra-axial spaces: Density blood products layering in the sulci of the cerebellum and right frontal lobe. Ventricular system: High density blood collection within the bilateral lateral ventricles the cerebra l aqueduct, third and fourth ventricles. Cerebral parenchyma: No additional acute intraparenchymal hemorrhage or mass effect besides below Cerebellum. The fowler-white junction is well differentiated. Cerebellum: Intracranial hemorrhage involving the cerebellum measuring up to 5.2 x 4.9 cm. There is c rowding of the basilar cisterns. Mass effect: No evidence of midline shift. Intracranial vasculature: unremarkable Soft tissues: Normal. Calvarium/osseous structures: No depressed skull fracture. Paranasal sinuses and mastoid air cells: Mild scattered paranasal sinus disease. Visualized orbits: Orbital contents are intact. IMPRESSION: Acute cerebellar intraparenchymal hemorrhage with subarachnoid and intraventricular hemorrhages. Find ings could lead to obstructive hydrocephalus. Additionally there is crowding of the basilar cisterns concerning for impending herniation. Findings communicated to Amber Jean MD on 09/16/2024 9:[address] Devendra Chahal. [facility], , 09/16/2024 9:49 PM
[2024-09-16] MEDS ORDERED: SCOPOLAMINE 1 MG/72 HR PATCH TRANSDERM SCH (22:00)
[2024-09-16] MEDS: MORPHINE SULFATE 2 MG/ML SYRINGE IVP PRN (22:17)
[2024-09-16 22:43] VITALS: BP 118/86; PULSE 141; RESP 8
[2024-09-17] MEDS ORDERED: LEVOTHYROXINE 50 MCG TAB PO SCH (06:30)
[2024-09-17] MEDS ORDERED: MONTELUKAST 10 MG TAB PO SCH (09:00)
[2024-09-17] MEDS ORDERED: FUROSEMIDE 40 MG TAB PO SCH (09:00)
[2024-09-17] MEDS ORDERED: NON FORMULARY DRUG (Warfarin Sodium [Warfarin Sodium] 4 MG Tablet) PO SCH (09:00)
--- NOTE | 2024-09-19 19:41 | CDI ---
Documentation Clarification Form Date: 09/19/2024 07:22:48 PM From: Corinne Mcintyre Phone: Admit Date: 09/15/2024 03:41:00 PM Patient Name: Alexandro More Visit Number: [id number] Discharge Date: 09/16/2024 10:49:00 PM ATTENTION: The Clinical Documentation Specialists (CDI) and [facility] Coding Staff appreciate your assistance in clarifying documentation. Please respond to the clarification below the line at the bottom and electronically sign. The CDI & [facility] Coding staff will review the response and follow-up if needed. Please note: Queries are made part of the Legal Health Record. If you have any questions, please contact the author of this message via ITS. Doctor/Provider: Amber Jean There is documentation of intracranial bleed per nursing note with resulting mortality. Additional clarification is requested. History/Risk Factors: 79yo M, AECOPD, NSTEMI II, CAD, DJD, Asp PNA, ACSRF, HTN, PHTN, NIDDMII, Hx DE, hypotension, Hx CVA/TIA, DNR, hospice and mortality Clinical Indicators: 09/17/24 00:44 - Nurse Note by Patricia Garcia: 2146 Dr Mondragon called to notify that Brain CT was positive for intracranial bleed. Treatment: 2218 Dr. Gimenez notified of Brain CT results and family's decision for comfort care. 2222 Family, RT and service writer at bedside. Pt extubated. 2223 All IV medications discontinued. 2249 Time of , confirmed by service writer and Curtis Ricardo RN 225 CAROLINA Mendenhallcentrifugal supervisor notified of TOD 2258 Dr. Jean notified of Time of 2320 Lia Parra ([place]) notified of patient ; body released 2330 Rosetta at [facility] contacted with Patient expiration; hold placed on body for potential tissue donor 0045 pt. transported to the [facility] by DILAN Mora Can you please clarify cause of ? [ ] Intracranial bleed [ ] Acute exacerbation of COPD [ ] Other, please specify [ ] Unable to determine (Template Last Revised: June 2020) Intracranial bleed MTDD
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
== END 2024-09-16 22:49 | disposition expired ==
LOC: EC 11:59 → 3SCARD 15:41 → 2SICU 09-16 16:09
PROVIDERS: ADMIT Hospitalist; ATTEND Hospitalist
PROC: 0BH18EZ Insertion of Endotracheal Airway into Trachea, Via Natural or Artificial Opening Endoscopic (ICD-10-PCS; principal; 2024-09-16)
PROC: 5A1935Z Respiratory Ventilation, Less than 24 Consecutive Hours (ICD-10-PCS; 2024-09-16)
PROC: 5A12012 Performance of Cardiac Output, Single, Manual (ICD-10-PCS; 2024-09-16)
PROC: 06HY33Z Insertion of Infusion Device into Lower Vein, Percutaneous Approach (ICD-10-PCS; 2024-09-16)
PROC: 3E043XZ Introduction of Vasopressor into Central Vein, Percutaneous Approach (ICD-10-PCS; 2024-09-16)
DX: I11.0 Hypertensive heart disease with heart failure (principal); I50.23 Acute on chronic systolic (congestive) heart failure; I21.A1 Myocardial infarction type 2; J69.0 Pneumonitis due to inhalation of food and vomit; J96.21 Acute and chronic respiratory failure with hypoxia; I62.9 Nontraumatic intracranial hemorrhage, unspecified; I46.9 Cardiac arrest, cause unspecified; Z51.5 Encounter for palliative care; J44.1 Chronic obstructive pulmonary disease with (acute) exacerbation; I27.22 Pulmonary hypertension due to left heart disease; E11.9 Type 2 diabetes mellitus without complications; E03.9 Hypothyroidism, unspecified; I34.0 Nonrheumatic mitral (valve) insufficiency; I48.3 Typical atrial flutter; I48.0 Paroxysmal atrial fibrillation; Z66 Do not resuscitate; M19.90 Unspecified osteoarthritis, unspecified site; K64.8 Other hemorrhoids; K57.30 Diverticulosis of large intestine without perforation or abscess without bleeding; E78.5 Hyperlipidemia, unspecified; I95.9 Hypotension, unspecified; K29.00 Acute gastritis without bleeding; Z79.01 Long term (current) use of anticoagulants; Z99.81 Dependence on supplemental oxygen; Z87.891 Personal history of nicotine dependence; I25.2 Old myocardial infarction; Z86.73 Personal history of transient ischemic attack (TIA), and cerebral infarction without residual deficits; Z79.890 Hormone replacement therapy; Z79.899 Other long term (current) drug therapy; Z85.46 Personal history of malignant neoplasm of prostate; Z85.818 Personal history of malignant neoplasm of other sites of lip, oral cavity, and pharynx; Z92.3 Personal history of irradiation; Z85.01 Personal history of malignant neoplasm of esophagus; Z92.21 Personal history of antineoplastic chemotherapy
CPT/HCPCS: 36415; 70450; 70496; 70498; 71045; 71046; 74176; 80053; 81003; 82805; 83036; 83690; 83735; 83880; 84145; 84439; 84443; 84484; 85025; 85027; 85610; 85730; 87040; 87070; 87205; 87636; 93005; 94002; 94640; 96365; 96366; 96368; 96375; 96376; 99291